=== PATIENT | female | born 1945 | race Caucasian/White ===

== ENCOUNTER 2019-03-31 09:32 | Outpatient (CLI) | payer MEDICARE, SELFPAY ==
[2019-03-31 12:27] LABS: HCT 37.8 % (36.0-46.0); HGB 12.3 g/dL (12.0-15.5); Mean Corp. HGB Concentration 32.5 g/dL (32.0-36.0); Mean Corpuscular Hemoglobin 27.4 pg (27.0-33.0); Mean Corpuscular Volume 84.2 fL (80-95); Mean Platelet Volume 10.1 fL (8.0-11.0); Platelet Count 295 x1000/uL (130-400); RBC 4.49 m/cumm (4.00-5.20); RBC Distribution Width 13.6 % (11.7-14.6); White Blood Cell Count 6.73 k/cumm (4.4-10.8)
[2019-03-31 12:47] LABS: ALT 21 U/L (12-78); AST 14 U/L (15-37); Albumin 3.4 g/dL (3.4-5.0); Alkaline Phosphatase 109 U/L (46-116); Anion Gap 8.7 mmol/L (3-11); BUN 23 mg/dL (7-18); Bilirubin, Total 0.3 mg/dL (0.2-1.0); CO2 29.3 mmol/L (21.0-32.0); CREATININE 0.85 mg/dL (0.55-1.02); Calcium 9.8 mg/dL (8.5-10.1); Calculated LDL 83 mg/dL; Chloride 105 mmol/L (98-107); Cholesterol 149 mg/dL (50-200); Glucose 96 mg/dL (70-100); HDL Cholesterol 51 mg/dL (40-60); Potassium 4.1 mmol/L (3.5-5.1); Sodium 143 mmol/L (136-145); Total Protein 6.9 g/dL (6.4-8.2); Triglyceride 77 mg/dL (30-150)
[2019-03-31 13:41] LABS: ESR 46 MM/HR (0-30)
[2019-03-31 14:18] LABS: COMMENT (LAB VIEW ONLY) 6.99 mg/dL
[2019-03-31 17:31] LABS: Hemoglobin A1C 5.5 % (4.5-6.2)
== END 2019-03-31 09:52 ==
PROVIDERS: PCP Family Medicine; Visit Provider Family Medicine
DX: E11.9 Type 2 diabetes mellitus without complications (principal); J32.9 Chronic sinusitis, unspecified; I10 Essential (primary) hypertension; R51 Headache
CPT/HCPCS: 36415; 80053; 80061; 83721; 85027; 85652; 82043; 82570; 83036

== ENCOUNTER 2019-08-01 08:33 | Emergency (ER) | payer MEDICARE, SELFPAY ==
[2019-08-01 08:37] VITALS: BP 153/65; PULSE 68; RESP 18; TEMP 37; O2SAT 99
--- NOTE | 2019-08-01 08:57 | W.ED.GENAD ---
Discharge Plan Disposition Patient Disposition: HOME Condition: Improving Discharge Details Chief Complaint: EyeProblem Clinical Impression: Abrasion of cornea, left Primary Care Provider: Navi Gomez ED Provider: Alex Blancas Home Meds and New Rx's Prescriptions: Continued oxybutynin chloride 5 mg tablet 5 mg PO BID Qty: 60 RF: 11 famotidine 20 mg tablet 20 mg PO BID Qty: 60 RF: 11 fluticasone propionate 50 mcg/actuation spray,suspension 2 spray MAO DAILY Qty: 18.2 RF: 11 omega-3 fatty acids-fish oil 300-1,000 mg capsule 2 cap PO DAILY Qty: 180 RF: 3 lovastatin 40 mg tablet 40 mg PO DAILY Qty: 90 RF: 4 metformin 500 mg tablet 500 mg PO BID 90 Days Qty: 180 RF: 3 losartan-hydrochlorothiazide [Hyzaar] 50-12.5 mg tablet 1 tab PO DAILY Qty: 90 RF: 4 glucosam-chond ob-zidolt-bv ac 1 EACH capsule 2 cap PO DAILY RF: 0 (DME) Breeze 2 Control Solution, Low 1 EACH solution 1 ea Miscellaneous DAILY Qty: 100 RF: 4 (DME) blood-glucose meter [OneTouch Verio System] 1 EACH misc Miscellaneous PRN Qty: 1 RF: 0 (DME) OneTouch Verio 1 EACH strip 1 ea Miscellaneous BID 90 Days Qty: 180 RF: 3 paroxetine HCl [Paxil] 30 mg tablet 30 mg PO DAILY Qty: 90 RF: 1 multivitamin 1 EACH capsule 1 cap PO DAILY RF: 0 calcium carbonate-vitamin D3 [Caltrate with Vitamin D3] 600 mg(1,500mg) -800 unit tablet 1 tab PO DAILY RF: 0 Discharge Instructions Instructions: Corneal Abrasion (ED) Additional Instructions: Erythromycin ointment 3-4 times daily for 5 days time. You may benefit from wearing sunglasses and avoiding bright light. May apply warm compress or cool compress if needed for comfort. Return if develop worsening discomfort, change to vision, or any other acute concerns. Continue all other previously prescribed medications. Medical Decision Making 74-year-old female presents with left eye injection and irritation. On exam she is noted to have 3 discrete left anterior corneal abrasions. Will treat with erythromycin ointment. She is stable for outpatient management. She understands return precautions. HPI General Mode of arrival: ambulatory. Date/Time Provider Initiated Documentation: 08/01/19 08:45. Limitations to Documentation: no limitations. Information obtained by: patient and family. History of Present Illness 74 year old F presents to the emergency department with the chief complaint of Left eye irritation, scratched the day before, described as moderate, Quality is described as constant, and is localized to the eyes. Patient started experiencing this minute(s) and it has been other (Improving). No relieving factors improve symptom(s), No exacerbating factors reported . Patient notes no other symptoms.. Patient did receive the following treatments prior to arrival, none Related Data Home Medications Medication Instructions Recorded Confirmed multivitamin 1 cap PO DAILY 11/30/12 08/01/19 glucosam-chond ld-krnvmj-ti ac 2 cap PO DAILY 01/27/13 08/01/19 Breeze 2 Control Solution, Low #100 ea 06/28/17 08/01/19 OneTouch Verio #180 strip 05/27/18 08/01/19 blood-glucose meter [OneTouch #1 05/27/18 08/01/19 Verio System] calcium carbonate-vitamin D3 600 1 tab PO DAILY tab 03/31/19 08/01/19 mg (1,500 mg)-800 unit tablet fluticasone propionate 50 2 spray MAO DAILY #18.2 gm 03/31/19 08/01/19 mcg/actuation nasal spray,suspension losartan 50 mg-hydrochlorothiazide 1 tab PO DAILY #90 tab-cap 03/31/19 08/01/19 12.5 mg tablet lovastatin 40 mg tablet 40 mg PO DAILY #90 tab 03/31/19 08/01/19 metformin 500 mg tablet 500 mg PO BID 90 Days #180 tab-cap 03/31/19 08/01/19 omega-3 fatty acids-fish oil 300 2 cap PO DAILY #180 cap 03/31/19 08/01/19 mg-1,000 mg capsule paroxetine HCl 30 mg tablet 30 mg PO DAILY #90 tab 05/05/19 08/01/19 famotidine 20 mg tablet 20 mg PO BID #60 tab 07/27/19 08/01/19 oxybutynin chloride 5 mg tablet 5 mg PO BID #60 tab 07/27/19 08/01/19 Previous Rx's Medication Instructions Recorded Breeze 2 Control Solution, Low #100 ea 06/28/17 OneTouch Verio #180 strip 05/27/18 fluticasone propionate 50 2 spray MAO DAILY #18.2 gm 03/31/19 mcg/actuation nasal spray,suspension losartan 50 mg-hydrochlorothiazide 1 tab PO DAILY #90 tab-cap 03/31/19 12.5 mg tablet lovastatin 40 mg tablet 40 mg PO DAILY #90 tab 03/31/19 metformin 500 mg tablet 500 mg PO BID 90 Days #180 tab-cap 03/31/19 omega-3 fatty acids-fish oil 300 2 cap PO DAILY #180 cap 03/31/19 mg-1,000 mg capsule paroxetine HCl 30 mg tablet 30 mg PO DAILY #90 tab 05/05/19 famotidine 20 mg tablet 20 mg PO BID #60 tab 07/27/19 oxybutynin chloride 5 mg tablet 5 mg PO BID #60 tab 07/27/19 Allergies Allergy/AdvReac Type Severity Reaction Status Date / Time latex Allergy Intermediate burning Unverified 08/01/19 08:45 adhesive Allergy Mild RASH Unverified 08/01/19 08:45 mercury (elemental) Allergy Unknown Unverified 08/01/19 08:45 tolterodine tartrate Allergy Unknown Unverified 08/01/19 08:45 [From Detrol] lisinopril AdvReac Unknown Unverified 08/01/19 08:45 General Stated Complaint: EyeProblem ASA: 4 Review of Systems Narrative: No change to vision, she is otherwise been well. Takes oral antibiotic for chronic infection. 4 systems reviewed and otherwise negative [facility] Surgical History Abdominal hysterectomy 1980 ADHESIONS (~1969) Appendectomy (~1965) Bladder Surgery CANCER TUMOR 1998 Extraction of cataract 07/28/15; DR. 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/13) Family History Mother Heart disease ID Hyperlipidemia Father Heart disease ID Hyperlipidemia Grandmother Heart disease ID Social History Smoking/Tobacco Use Status: Former Tobacco Use Alcohol Intake: never Drug use: Never Do you feel safe at home: Yes Do you feel safe in your relationship?: Yes Exam Narrative Exam Narrative: GEN: awake, alert, oriented 3. Pleasant, well groomed, interactive. HEAD: Normocephalic, atraumatic ENT: Mucous membranes moist, oropharynx unremarkable, External ear exam unremarkable EYES: PERRL, EOMI. left conjunctival and scleral injection, discrete 3 anterior corneal abrasions with positive floor seen uptake, negative Annita sign NECK: Full ROM, no KATHY, no menigismus Neuro: Grossly normal neurologic exam, conversant, interactive. Psych: Speech fluent, thoughts congruent, affect normal Course Vital Signs Vital signs: Vital Signs Temperature 37 C 08/01/19 08:37 Pulse 68 08/01/19 08:37 Respiratory Rate 18 08/01/19 08:37 Blood Pressure 153/65 H 08/01/19 08:37 Pulse Oximetry 99 08/01/19 08:37 Temperature 37 C 08/01/19 08:37 Temperature Source Temporal Artery Scan 08/01/19 08:37 Pulse 68 08/01/19 08:37 Respiratory Rate 18 08/01/19 08:37 Respiratory Effort Non-Labored 08/01/19 08:44 Blood Pressure 153/65 H 08/01/19 08:37 Blood Pressure Position Sitting 08/01/19 08:37 Pulse Oximetry 99 08/01/19 08:37 Oxygen Delivery Method Room Air 08/01/19 08:37 Oxygen Flow Rate 0 08/01/19 08:37 Pain Level 5 08/01/19 08:37
[2019-08-01] MEDS: Balanced Salt Solution 15 ML BTL (09:04)
[2019-08-01] MEDS: Fluorescein STRIPS 100/BOX 1 MG (09:04)
[2019-08-01] MEDS: Erythromycin Ophth Oint 3.5 GM TUBE (09:05)
== END 2019-08-01 09:10 | disposition home or self-care (01) ==
PROVIDERS: Emergency Provider Emergency Medicine; PCP Family Medicine
DX: S05.02XA Injury of conjunctiva and corneal abrasion without foreign body, left eye, initial encounter (principal); X58.XXXA Exposure to other specified factors, initial encounter
CPT/HCPCS: 99283

== ENCOUNTER → 2019-10-23 09:39 | Outpatient (BNVA) | payer MEDICARE, SELFPAY | PROVIDERS: PCP Family Medicine; Referring Provider Family Medicine; Visit Provider Surgery | DX: R13.10 Dysphagia, unspecified (principal); I10 Essential (primary) hypertension; E11.9 Type 2 diabetes mellitus without complications; Z79.84 Long term (current) use of oral hypoglycemic drugs | CPT/HCPCS: 99202; 99213 ==

== ENCOUNTER 2019-11-10 11:05 | Outpatient (CLI) | payer MEDICARE, SELFPAY ==
--- NOTE | 2019-11-10 11:11 | DI.RAD_ITS ---
EXAM: XR WRIST LT COMPLETE INDICATION: left wrist pain, M25.532. COMPARISON: No exams were available for comparison TECHNIQUE: 2D digital imaging was performed. FINDINGS: No acute fracture is identified. There is slight deformity of the distal radius and ulna which may b e related to old fractures. Degenerative changes are noted greatest at the 1st carpal metacarpal dale nt. No bony erosions are seen. IMPRESSION: Old healed fracture deformities and mild degenerative changes.
== END 2019-11-10 11:25 ==
PROVIDERS: PCP Family Medicine; Visit Provider Family Medicine
DX: M25.532 Pain in left wrist (principal); M19.032 Primary osteoarthritis, left wrist; Z87.81 Personal history of (healed) traumatic fracture
CPT/HCPCS: 73110

== ENCOUNTER 2019-11-24 08:22 | Outpatient (CLI) | payer MEDICARE, SELFPAY ==
[2019-11-24 09:04] LABS: Hemoglobin A1C 5.7 % (3.8-5.6)
[2019-11-24 09:58] LABS: ALT 16 U/L (14-59); AST 15 U/L (15-37); Albumin 3.4 g/dL (3.4-5.0); Alkaline Phosphatase 94 U/L (46-116); BUN 19 mg/dL (7-18); Bilirubin, Total 0.3 mg/dL (0.2-1.0); CREATININE 0.87 mg/dL (0.55-1.02); Calcium 9.4 mg/dL (8.5-10.1); Chloride 104 mmol/L (98-107); Glucose 87 mg/dL (74-106); Potassium 4.6 mmol/L (3.5-5.1); Sodium 141 mmol/L (136-145); Total Protein 6.7 g/dL (6.4-8.2); Uric Acid 4.6 mg/dL (2.6-6.0)
== END 2019-11-24 08:42 ==
PROVIDERS: PCP Family Medicine; Visit Provider Family Medicine
DX: E11.9 Type 2 diabetes mellitus without complications (principal); M25.532 Pain in left wrist
CPT/HCPCS: 36415; 80053; 83036; 84550

== ENCOUNTER 2019-12-02 05:58 | Day surgery (SDC) | payer MEDICARE, SELFPAY ==
[2019-12-02 06:10] VITALS: BP 141/63; PULSE 66; RESP 18; TEMP 37; O2SAT 97
--- NOTE | 2019-12-02 06:41 | ENDO_ITS ---
Date of service: 12/02/19 Time of Service: 07:27 Endoscopy Report DATE OF PROCEDURE: 12/02/19 PRE-OP DIAGNOSIS: Trouble swallowing, bloating POST-OP DIAGNOSIS: other (Gastritis, esophagitis, hiatal hernia) PROCEDURE: EGD with biopsies SURGEON: Yana Ayers ANESTHESIA: other (General/ ASA 3/Odilon Licona CRNA) ESTIMATED BLOOD LOSS: 5 PATHOLOGY: other (Antrum bx, greater curvature bx, GE junction bx, distal esophagus bx) COMPLICATIONS: None DISPOSITION: same day INDICATIONS: 74-year-old female with multiple medical problems and a history of reflux and a hiatal hernia who comes in complaining of 2 to 3 months worth of increased gas pain/chest pain which is relieved with Gas-X and trouble swallowing as well as painful swallowing. Patient was on omeprazole and was then switched to Pepcid. She was unable to tolerate the Pepcid due to ulcers in her mouth. She is at this time not taking anything for reflux. Last EGD was about 4 to 5 years ago. PROCEDURE START TIME: FINDINGS: Moderate gastritis. No ulcers Small Hiatal hernia Esophagitis, consistent with reflux PROCEDURE DESCRIPTION: After informed consent was obtained the patient was take to the procedure room and placed in a supine position. Monitors were applied and a time out was done. The patients name, date of , procedure type, allergies to medications and metal in their body was reviewed. A bite block was placed and the patient was sedated. Once sedated and comfortable the gastroscope was advanced through the oropharynx which was grossly normal into the esophagus. The proximal and mid- esophagus were normal. In the distal esophagus there was inflammation noted. The scope was advanced into the stomach and through the pylorus into the 3rd portion of the duodenum. The duodenum was noted to be normal. The scope was retracted back into the stomach. Patchy inflammation was noted in the antrum and body of the stomach. There were no ulcers. Biopsies were done of the antrum and greater curvature of the stomach to rule out H. pylori. The scope was retro- flexed. The cardia and fundus were noted to be normal. There was a small hiatal hernia noted. The scope was retracted back into the esophagus and biopsies were done of the GE junction to rule out Hinkle's. The Z line was i rregular. Grossly no hinkle's. The GE junction was at 33 cm. Biopsies were done of the distal esophagus to rule out eosinophilic esophagitis. The scope was removed and the patient was woken up and taken back to [facility] in stable condition. Follow up: 2 weeks. I will start the patient back on Omeprazole 40 mg daily as well as Carafate.
--- NOTE | 2019-12-02 06:41 | HPE_ITS ---
Assessment and Plan Assessment and plan (1) Swallowing pain or burning: Status: Acute Assessment and plan: A\\74-year-old female with multiple medical problems and a history of reflux and a hiatal hernia who comes in complaining of 2 to 3 months worth of increased gas pain/chest pain which is relieved with Gas-X and trouble swallowing as well as painful swallowing. Patient was on omeprazole and was then switched to Pepcid. She was unable to tolerate the Pepcid due to ulcers in her mouth. She is at this time not taking anything for reflux. Last EGD was about 4 to 5 years ago. P\\ EGD under sedation Risks, benefits and complications have been reviewed. Complications include but are not limited to bleeding, pain, perforation, sore throat, aspiration, and adverse reaction to the medications. Questions were entertained and answered to their satisfaction and they wished to proceed. No guarantees were given or implied. History of Present Illness Narrative: Mrs. Barnhart is a 74-year-old female who is here in the office today to discuss an upper endoscopy. Patient states that she has been having 2 to 3 months of increased abdominal gas with increased burping. She has pressure/chest pain that is relieved with Gas-X. It comes and goes. She describes pain with swallowing more than anything else. She had been on omeprazole for 20+ years for gastroesophageal reflux disease and a hiatal hernia. She stopped taking the omeprazole and was switched over to famotidine which then caused her to have ulcers in her mouth. She states that she was d iagnosed with small bowel Crohn's but is not on any medication for it. She denies any diarrhea or hematochezia. Her last upper endoscopy was about 5 years ago at which point she was diagnosed with a hiatal hernia. She did have an EKG done at her primary care physician's office which was normal. She denies a history of cardiac disease or strokes. Her past medical history is quite extensive. Of note the patient does have obstructive sleep apnea. She is obese with a BMI of more than 43. NO changes in her health since she was seen on October 23. Review of Systems Constitutional Constitutional: Denies fever(s) Cardiovascular Cardiovascular: Denies chest pain, Denies chest pain at rest, Denies chest pain with activity, Denies irregular heart rhythm, Denies dyspnea and Denies dyspnea on exertion Respiratory Respiratory: Denies dyspnea and Denies dyspnea on exertion [facility] Medical History Allergic rhinitis (Inactive) Benign paroxysmal positional vertigo (Inactive 03/04/18) Crohn's disease of small intestine without complication (Inactive 06/15/16) Depressive disorder (Inactive) Diabetes mellitus (Inactive) Essential hypertension (Inactive) GERD (gastroesophageal reflux disease) (Inactive 12/05/15) Globus sensation (Inactive 12/05/15) Headache (Inactive) History of tobacco use (Inactive) HTN (hypertension) (Inactive) Hyperlipidemia (Inactive) Mantoux: positive (Inactive) pt. is not aware of this Obesity (Inactive) MONIQUE (obstructive sleep apnea) (Inactive 12/05/15) Overactive bladder (Inactive 01/12/15) Peripheral neuralgia (Inactive) Prediabetes (Inactive 06/24/17) Seasonal allergies (Inactive 01/12/15) Sensorineural hearing loss, bilateral (Inactive 12/05/15) TMJ (temporomandibular joint disorder) (Inactive 12/05/15) Type 2 diabetes mellitus without complication, without long-term current use of insulin (Acute 07/08/17) Urge incontinence (Inactive) Vitamin D deficiency (Inactive 07/08/17) Surgical History Abdominal hysterectomy 1980 ADHESIONS (~1970) Bladder Surgery CANCER TUMOR 1998 Extraction of cataract 07/28/15; DR. 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 Status post appendectomy (Inactive) 1965 Family History Mother Heart disease AR Hyperlipidemia Father Heart disease AR Hyperlipidemia Grandmother Heart disease AR Social History Smoking/Tobacco Use Status: Former Tobacco Use Quit Date: 06/30/81 Alcohol Intake: never Drug use: Never Substance use type: does not use Additional Social history: pt. declines to answer That's not your buisness Meds Home Medications and Allergies Home Medications Medication Instructions Recorded Confirmed Type multivitamin 1 cap PO DAILY 11/30/12 12/02/19 History glucosam-chond ux-iojisu-yb ac 2 cap PO DAILY 01/27/13 12/02/19 History Breeze 2 Control Solution, Low #100 ea 06/28/17 11/10/19 Rx blood-glucose meter [OneTouch #1 05/27/18 11/10/19 History Verio System] calcium carbonate-vitamin D3 600 1 tab PO DAILY tab 03/31/19 12/02/19 History mg (1,500 mg)-800 unit tablet fluticasone propionate 50 2 spray MAO DAILY #18.2 gm 03/31/19 12/02/19 Rx mcg/actuation nasal spray,suspension losartan 50 mg-hydrochlorothiazide 1 tab PO DAILY #90 tab-cap 03/31/19 12/02/19 Rx 12.5 mg tablet lovastatin 40 mg tablet 40 mg PO DAILY #90 tab 03/31/19 12/02/19 Rx metformin 500 mg tablet 500 mg PO BID 90 Days #180 tab-cap 03/31/19 12/02/19 Rx omega-3 fatty acids-fish oil 300 2 cap PO DAILY #180 cap 03/31/19 12/02/19 Rx mg-1,000 mg capsule paroxetine HCl 30 mg tablet 30 mg PO DAILY #90 tab 05/05/19 12/02/19 Rx oxybutynin chloride 5 mg tablet 5 mg PO BID #180 tab 08/18/19 12/02/19 Rx blood sugar diagnostic #180 strip 08/25/19 11/10/19 Rx amitriptyline 10 mg tablet 10 mg PO QHS #90 tab 11/10/19 12/02/19 Rx omeprazole 20 mg capsule,delayed 20 mg PO BID #180 cap 11/10/19 12/02/19 Rx release Allergies Allergy/AdvReac Type Severity Reaction Status Date / Time famotidine Allergy Severe mouth Unverified 12/02/19 06:26 blisters latex Allergy Intermediate burning Unverified 12/02/19 06:26 adhesive Allergy Mild RASH Unverified 12/02/19 06:26 mercury (elemental) Allergy Unknown Unverified 12/02/19 06:26 tolterodine tartrate Allergy Unknown Unverified 12/02/19 06:26 [From Detrol] lisinopril AdvReac Unknown Unverified 12/02/19 06:26 Exam Const General: cooperative, comfortable and no acute distress Orientation: alert and oriented x3 Resp Effort & Inspection: normal respiratory effort Auscultation: clear to auscultation bilaterally Cardio Rate: regular rate Rhythm: regular rhythm Heart Sounds: no gallops, no murmurs and no rubs GI Palpation: soft, no hepatosplenomegaly and nontender Results Last Vital Signs Temp 98.6 F 12/02/19 06:10 Pulse 66 12/02/19 06:10 Resp 18 12/02/19 06:10 BP 141/63 H 12/02/19 06:10 Pulse Ox 97 12/02/19 06:10
[2019-12-02] MEDS: Lactated Ringers 1,000 ML 80 ML IV (06:45)
--- NOTE | 2019-12-02 06:52 | PDOC.DSDIS_ITS ---
Discharge Plan Disposition Patient Disposition: HOME Condition: Good Discharge Details Reason For Visit: Trouble swallowing, bloating Attending Provider: Yana Ayers Primary Care Provider: Navi Gomez Home Meds and New Rx's Prescriptions: New sucralfate [Carafate] 1 gram tablet 1 gm PO QID Qty: 56 RF: 0 Continued amitriptyline 10 mg tablet 10 mg PO QHS Qty: 90 RF: 1 omeprazole 20 mg capsule,delayed release(DR/EC) 20 mg PO BID Qty: 180 RF: 3 fluticasone propionate 50 mcg/actuation spray,suspension 2 spray MAO DAILY Qty: 18.2 RF: 11 omega-3 fatty acids-fish oil 300-1,000 mg capsule 2 cap PO DAILY Qty: 180 RF: 3 lovastatin 40 mg tablet 40 mg PO DAILY Qty: 90 RF: 4 metformin 500 mg tablet 500 mg PO BID 90 Days Qty: 180 RF: 3 losartan-hydrochlorothiazide [Hyzaar] 50-12.5 mg tablet 1 tab PO DAILY Qty: 90 RF: 4 glucosam-chond we-lugqkz-vf ac 1 EACH capsule 2 cap PO DAILY RF: 0 (DME) Breeze 2 Control Solution, Low 1 EACH solution 1 ea Miscellaneous DAILY Qty: 100 RF: 4 (DME) blood-glucose meter [OneTouch Verio System] 1 EACH misc Miscellaneous PRN Qty: 1 RF: 0 paroxetine HCl [Paxil] 30 mg tablet 30 mg PO DAILY Qty: 90 RF: 1 oxybutynin chloride 5 mg tablet 5 mg PO BID Qty: 180 RF: 3 (DME) OneTouch Verio Strip 1 ea Miscellaneous BID 90 Days Qty: 180 RF: 3 multivitamin 1 EACH capsule 1 cap PO DAILY RF: 0 calcium carbonate-vitamin D3 [Caltrate with Vitamin D3] 600 mg(1,500mg) -800 unit tablet 1 tab PO DAILY RF: 0 Discharge Instructions Instructions: Diet for Stomach Ulcers and Gastritis (GEN), Gastritis (DC), Esophagitis (DC) Additional Instructions: Findings: inflammation of the stomach and esophagus Follow up: 2 weeks Medications: Continue Omeprazole 20 mg 2 x a day ADD Carafate 1 gm before meals and at bedtime Please call if you develop: fevers >101.5 Nausea or Vomiting Abdominal pain that is not transient DAY SURGERY UNIT POST ENDOSCOPY INSTRUCTIONS 1. Because there will be medication in your system for the next 24 hours, you may feel a little sleepy. Your coordination will be affected. Therefore: a. Do not drive or operate dangerous equipment for 24 hours. b. Do not drink alcohol beverages for 24 hours (not even beer). c. Plan to go home and rest for the day. 2. Generally there are no restrictions on your activity after a day or so has gone by, but you may feel a bit fatigued for a few days. 3 After you arrive home you may have a light meal and return to a normal diet as you can tolerate it without feeling sick to your stomach. 4. After surgery, you may feel pain or discomfort. This should be only transient, but if it persists please contact your doctor. 5. If there are any questions regarding the findings of your procedure, please feel free to contact your doctor. 6. If you are unable to contact your doctor with a problem, contact the hospital at [phone]. 7. Continue all your regular medications unless directed otherwise. I understand the above instructions and have no questions. Signature of Patient or Responsible Adult Escort Date/Time Name of Responsible Adult Escort Signature of Nurse Date/Time Referrals: Yana Ayers MD [ [facility] STAFF PHYSICIAN] - 12/18/19 9:00 am Activity:: Activity as Tolerated Diet:: low acid Discharge Orders Discharge Orders: Discharge Order (Routine); Ordered 12/02/19 Ordered By: Yana Ayers DS: Diagnosis Discharge Diagnosis (1) Swallowing pain or burning: Status: Acute
--- NOTE | 2019-12-02 07:28 | STOM_PTH ---
PATIENT: Lori Barnhart LOC: [facility] U#:[id number] AGE/SX: 74/F ROOM: RE12/02/[address]: Yana Ayers MD : [id number] BED: DIS: 12/02/2019 SPEC #: [id number] RECD: 12/02/19 12:30 STATUS: TERESA RE #: [id number] ROSHNI: 12/02/19 07:[address]: Yana Ayers DEPT: Surgical Specimen RECD BY: Jenna Carroll ENTERED: 12/02/19 12:33 SP TYPE: STOMACH OTHR DR: Navi Gomez MD Tissues: 1 - STOMACH BIOPSY 2 - STOMACH BIOPSY 3 - ESOPHAGUS BIOPSY 4 - ESOPHAGUS BIOPSY Procedures: GROSS AND MICRO LEVEL 4 Comments: [id number]
[2019-12-02 08:00] VITALS: BP 142/61; PULSE 68; RESP 18; TEMP 36.6; O2SAT 96
== END 2019-12-02 08:26 | disposition home or self-care (01) ==
PROVIDERS: PCP Family Medicine; Visit Provider Surgery
PROC: 0DJ68ZZ Inspection of Stomach, Via Natural or Artificial Opening Endoscopic (ICD-10-PCS; CPT 43235; principal; 2019-12-02 07:30)
DX: R13.10 Dysphagia, unspecified (principal); R14.0 Abdominal distension (gaseous); K31.89 Other diseases of stomach and duodenum; K21.0 Gastro-esophageal reflux disease with esophagitis; K44.9 Diaphragmatic hernia without obstruction or gangrene; I10 Essential (primary) hypertension; E11.9 Type 2 diabetes mellitus without complications; Z79.84 Long term (current) use of oral hypoglycemic drugs; G47.33 Obstructive sleep apnea (adult) (pediatric)
CPT/HCPCS: 43239; 88305; NC

== ENCOUNTER 2020-04-06 03:06 | Outpatient (CLI) | payer MEDICARE, SELFPAY ==
[2020-04-06 09:59] LABS: Anion Gap 7.1 mmol/L (3-11); BUN 20 mg/dL (7-18); CO2 30.9 mmol/L (21.0-32.0); CREATININE 0.94 mg/dL (0.55-1.02); Calcium 9.7 mg/dL (8.5-10.1); Chloride 103 mmol/L (98-107); Estimated GFR 58.37 (mL/min/1.73m2); Glucose 91 mg/dL (74-106); Potassium 4.2 mmol/L (3.5-5.1); Sodium 141 mmol/L (136-145)
== END 2020-04-06 03:26 ==
PROVIDERS: PCP Family Medicine; Visit Provider Family Medicine
DX: R60.0 Localized edema (principal)
CPT/HCPCS: 36415; 80048

== ENCOUNTER 2020-05-02 02:31 | Outpatient (CLI) | payer MEDICARE, SELFPAY ==
[2020-05-02 12:31] LABS: Anion Gap 7.7 mmol/L (3-11); BUN 19 mg/dL (7-18); CO2 28.3 mmol/L (21.0-32.0); CREATININE 0.97 mg/dL (0.55-1.02); Calcium 9.9 mg/dL (8.5-10.1); Chloride 104 mmol/L (98-107); Estimated GFR 56.14 (mL/min/1.73m2); Glucose 93 mg/dL (74-106); Potassium 4.1 mmol/L (3.5-5.1); Sodium 140 mmol/L (136-145)
[2020-05-03 14:13] LABS: SS-A Antibody 2.1 Units (<20.0)
== END 2020-05-02 02:51 ==
PROVIDERS: Otolaryngology Otolaryngology/Facial Plastic Surgery; PCP Family Medicine; Visit Provider Family Medicine
DX: R60.0 Localized edema (principal); K13.79 Other lesions of oral mucosa; K14.6 Glossodynia; K11.7 Disturbances of salivary secretion
CPT/HCPCS: 36415; 80048; 86235

== ENCOUNTER 2020-05-12 00:57 | Outpatient (CLI) | payer MEDICARE, SELFPAY ==
--- NOTE | 2020-05-12 06:15 | DI.US_ITS ---
APPROVED REPORT EXAM: Comprehensive 2D, Doppler, and color-flow Echocardiogram Patient Location: Out-Patient Music Publicist: Stephanie Obando RDCS (AE) Indications: Edema, HTN Other Information Study Quality: Adequate Conclusion Left Ventricle : The left ventricle is normal size. The left ventricular systolic function is normal. The left ventricular ejection fraction is within the normal range. There is normal left ventricular wall thickness. There is normal LV segmental wall motion. The left ventricular diastolic function is normal. LVEF is 58%. Right Ventricle : The right ventricle is normal size. The right ventricular systolic function is norm al. The RVSP is 28.1 mmHg. Atria : The left atrium size is normal. The right atrium size is normal. Valves: There are no hemodynamically significant valvular lesions. Great Vessels : The aortic root is normal in size. The ascending aorta is normal in size. Aortic arch is normal in caliber. IVC is normal in size and collapses >50% with inspiration. Pericardium: Prominent anterior epicardial fat pad is present. Wall motion Left Ventricle The left ventricle is normal size. The left ventricular systolic function is normal. The left ventric ular ejection fraction is within the normal range. There is normal left ventricular wall thickness. T here is normal LV segmental wall motion. The left ventricular diastolic function is normal. There is no ventricular septal defect visualized. LVEF is 58%. Right Ventricle The right ventricle is normal size. The right ventricular systolic function is normal. The RVSP is 28 .1 mmHg. Atria The left atrium size is normal. The right atrium size is normal. The interatrial septum is intact wit h no evidence for an atrial septal defect. Aortic Valve The aortic valve is normal in structure. The Aortic valve is sclerotic. Aortic valve is trileaflet. T here is no aortic valvular stenosis. No aortic regurgitation is present. Mitral Valve There is mitral annular calcification. No evidence of mitral valve stenosis. Trace to mild mitral reg urgitation. Tricuspid Valve The tricuspid valve is normal in structure. There is no tricuspid valve stenosis. Mild tricuspid regu rgitation. Pulmonic Valve The pulmonary valve is normal in structure. There is no pulmonic valvular stenosis. There is no pulmo halie valvular regurgitation. Great Vessels The aortic root is normal in size. The ascending aorta is normal in size. Aortic arch is normal in ca liber. IVC is normal in size and collapses >50% with inspiration. Pericardium Prominent anterior epicardial fat pad is present. 2D Dimensions IVSD d PLAX 0.97 cm F: 0.6-1.0 LV Vol A2C d MOD 64.6 mL LVPW d PLAX 0.96 cm F: 0.6 - 1.0 LV Vol A4C d MOD 78.9 mL LVID d PLAX 4.72 cm F: 3.8 - 5.2 LA vol/ BSA A2C s A-L 25.0 mL/m2 LVDs 3.30 cm F: 2.2 - 3.5 LA vol/ BSA A4C s A-L 23.9 mL/m2 Ao Root d 2.38 cm F: 2.7 - 3.3 LA Vol/ BSA Biplane s A-L 25.1 mL/m2 RA Area A4C 14.44 cm2 LA Area A4C s MOD 18.15 cm2 RA Vol/ BSA A4C s A-L 18.6 mL/m2 LA Area A2C s MOD 18.09 cm2 Ao Asc Diam d 3.18 cm F: 2.3 - 3.1 LV EF A4C MOD 56.0 % LV EF Teichholz 57.0 % LV EF A2C MOD 58.9 % LVEF (Haney's) 58.57 % F: 54 - 74 LV EF Biplane MOD 58.6 % LV Volume 55.73 mL F: 46 - 106 SV 43.44 mL LV Volume Index 28.14 mL/m2 F: 29 - 61 SV Index 21.85 mL/m2 LV Vol Biplane MOD 74.2 mL FS 29.85 % M-Mode TAPSE 2.38 cm (M/F) >1.7 LV Diastology MV E' medial 0.077 (>0.07 m/s) E/A Ratio 0.9 LV E/e MED 9.50 (<14) MV E Vmax 0.73 (0.4-1.3 m/s) MV E' lateral 0.120 (>0.1 m/s) MV A Vmax 0.80 (0.4-1.3 m/s) LV E/e LAT 6.10 (<14) MV E/A Ratio 0.87 MV E/E' medial 9.54 MV E/E' lateral 6.13 Aortic Valve LVOT Area 2.35 cm2 AoV Area Vmax 1.77 cm2 LVOT Vmax 1.11 m/s AoV Area/ BSA (Vmax) 0.89 cm2/m2 LVOT Mean Zion. 0.72 m/s PRECIOUS Mean Zion. 1.63 cm2 LVOT Peak Grad 4.9 mmHg PRECIOUS Mean Zion. Index 0.82 cm2/m2 LVOT Mean Grad 2.4 mmHg LVOT VTI 0.282 m LVOT Diam s 1.70 cm AoV Vmax 1.47 m/s Velocity Ratio 0.75 AoV Mean Zion. 1.03 m/s AoV Peak Grad 8.6 mmHg LVOT SV 66.29 mL AoV Mean Grad 4.8 mmHg AoV VTI 0.355 m AoV Area VTI 1.87 cm2 AoV Area/ BSA (VTI) 0.94 cm/m2 Mitral Valve MV DT 186 (160-240 msec) MV PHT 54 msec MV Area PHT 4.07 cm2 Pulmonary Valve PV Vmax 1.58 (0.5-1.5 m/s) RVOT Peak Gr. 3.33 mmHg PV Peak Grad 10.0 mmHg RVOT Mean Gr. 1.95 mmHg PV Mean Grad 5.4 mmHg RVOT VTI 0.218 m PV VTI 0.339 m RVOT Vmax 0.91 m/s Tricuspid Valve TR Peak Grad 25.0 mmHg TR Vmax 2.50 m/s RA Pressure 3.00 mmHg RVSP (TR) 28.1 mmHg
== END 2020-05-12 01:17 ==
PROVIDERS: PCP Family Medicine; Visit Provider Family Medicine
DX: R60.0 Localized edema (principal); E11.9 Type 2 diabetes mellitus without complications; I10 Essential (primary) hypertension; Z79.4 Long term (current) use of insulin
CPT/HCPCS: 93306

== ENCOUNTER 2020-06-13 21:44 | Outpatient (REF) | payer MEDICARE, SELFPAY | END 2020-06-13 22:04 | LOC: LBN 21:44 | PROVIDERS: PCP Family Medicine; Visit Provider Otolaryngology Otolaryngology/Facial Plastic Surgery | DX: J02.9 Acute pharyngitis, unspecified (principal) | CPT/HCPCS: 87070 ==

== ENCOUNTER 2020-09-29 03:38 | Outpatient (CLI) | payer MEDICARE, SELFPAY ==
[2020-09-29 09:14] LABS: Hemoglobin A1C 5.4 % (<5.7)
[2020-09-29 09:34] LABS: ALT 19 U/L (14-59); Calculated LDL 73 mg/dL (<100); Cholesterol 153 mg/dL (<200); HDL Cholesterol 56 mg/dL (40-60); Triglyceride 123 mg/dL (<150)
[2020-09-29 09:43] LABS: COMMENT (LAB VIEW ONLY) < 13.00 mg/dL
== END 2020-09-29 03:58 ==
PROVIDERS: PCP Family Medicine; Visit Provider Family Medicine
DX: E11.9 Type 2 diabetes mellitus without complications (principal)
CPT/HCPCS: 36415; 80061; 82043; 82570; 83036; 84460

== ENCOUNTER 2021-09-14 15:54 | Outpatient (CLI) | payer MEDICARE, SELFPAY ==
--- NOTE | 2021-09-14 15:22 | DI.RAD_ITS ---
Exam(s) XR WRIST RT COMPL NAVICULAR EXAM: XR WRIST RT COMPL NAVICULAR CLINICAL HISTORY: RT WRIST PAIN M25.531. TECHNIQUE: 2D digital imaging was performed. COMPARISON: CR XR WRIST LT COMPLETE from 11/10/2019 FINDINGS: Four views the right wrist including a in the thickened ower view reveal no evidence of acute fractur e or carpal dislocation. No significant ulnar variance. No scaphoid fracture. Bone density is oste openic. IMPRESSION: No acute fracture evident. DATA REPOSITORY: RADIATION DOSE DELIVERED:
--- NOTE | 2021-09-14 15:23 | DI.RAD_ITS ---
Exam(s) XR THUMB RT EXAM: XR THUMB RT CLINICAL HISTORY: RT THUMB PAIN M79.644, PAIN BASE OF THUMB AND/OR WRIST. TECHNIQUE: 2D digital imaging was performed. COMPARISON: CR LEFT HAND COMPLETE from 01/08/2010 FINDINGS: No evidence of acute fracture or dislocation. On the lateral view there is a triangular ossified den sity off the dorsal aspect of the metacarpophalangeal joint of the thumb which is probably not an acu te fragment given that it appears corticated on all sides. There are mild degenerative changes at th e 1st carpometacarpal joint. There is no radiopaque foreign body. No osseous lesions. IMPRESSION: DATA REPOSITORY: RADIATION DOSE DELIVERED:
== END 2021-09-14 16:14 ==
PROVIDERS: PCP Nurse Practitioner Family; Visit Provider Physician Assistant Medical
DX: M79.644 Pain in right finger(s) (principal); M25.531 Pain in right wrist; M18.9 Osteoarthritis of first carpometacarpal joint, unspecified
CPT/HCPCS: 73110; 73140

== ENCOUNTER 2022-04-19 01:33 | Outpatient (CLI) | payer MEDICARE, SELFPAY ==
--- OUTSIDE RECORDS SUMMARY | 2022-04-19 01:36 | XMS_ITS | Encounter Summary ---
:1945 Author Organization [facility] Address [facility] [place] [address] Care Team Providers Name Role Phone Kerwin Sharma MD Primary Care Provider Reason for Visit Reason Onset Date Comments Bumped Appointment 10/11/2020 Encounter Details Date Type Department Care Team Description 10/11/2020 Telephone Ophthalmology at [facility] C Conchis, Bumped Appointment [facility] [place] [address] [facility] [phone] [place], [place] [address] (Wo rk) Social History Tobacco Use Types Packs/Day Years Used Date Former Smoker Quit: 1980 Smokeless Tobacco: Never Used Alcohol Use Standard Drinks/Week Comments Not Currently 0 (1 standard drink = 0.6 oz pure alcoho l) Sex Assigned at Date Recorded Not on file documented as of this encounter Miscellaneous Notes Telephone Encounter - Mely Calles - 10/13/2020 8:27 AM EST LMOAM x 2 to reschedule 2/5 appt with DM due to COVID restrictions. If patient is not having any issues please offer next available. If patient is having issues please offer tech visit on a day that DMis not there. Letter Sent Telephone Encounter - Mely Calles - 10/11/2020 8:49 AM EST LMOAM x 1 to reschedule 2/5 appt with DM due to COVID restrictions. If patient is not having any issues please offer next available. If patient is having issues please offer tech visit on a day that DMis not there. documented in this encounter Plan of Treatment Not on filedocumented as of this encounter Visit Diagnoses Not on filedocumented in this encounter Care Teams Special Order Jeweler Relationship Specialty Start Date End Date Kerwin Sharma MD PCP - General 06/25/[address] [place] [address] documented as of this encounter
--- OUTSIDE RECORDS SUMMARY | 2022-04-19 01:36 | XMS_ITS | Encounter Summary ---
:1945 Author Organization [place] [address] Care Team Providers Name Role Phone Jay BARRY MD, Lloyd L Primary Care Provider [phone] Encounter Details Date Type Department Care Team Description 01/26/2011 Orders [place] [facility] [place] Emerson MD [facility] [place] [address] ORTHOPAEDIC SURGERY [phone] [place] [address] (Wo rk) Social History Tobacco Use Types Packs/Day Years Used Date Never Assessed Sex Assigned at Date Recorded Not on file documented as of this encounter Plan of Treatment Not on filedocumented as of this encounter Procedures Procedure Name Priority Date/Time Associated Diagnosis Comme nts FILM LIBRARY Routine 01/26/2011 12:10 PM Results for this STORAGE ONLY MR EDT procedure ar e in WRIST the results section. documented in this encounter Results FILM LIBRARY- STORAGE ONLY MR WRIST (01/26/2011 12:10 PM EDT) Anatomical Region Laterality Modality Other Specimen (Source) Anatomical Collection Method Collection Time Re ceived Time Location / / Volume Laterality 01/26/2011 12:10 PM EDT Narrative 11/17/2013 6:33 PM EST This is a non-reportable exam. Procedure Note Wong Mariee - 11/17/2013Formatting of t his note might be different from the original. This is a non-reportable exam. Armen Emerson MD IMG FILM LIBRARY ORDERABLES documented in this encounter Visit Diagnoses Not on filedocumented in this encounter Care Teams Machine Assembler Relationship Specialty Start Date End Date Daniel Thompson III, MD PCP - General 08/22/10 06/24/11 [address] [place] [address] documented as of this encounter
--- OUTSIDE RECORDS SUMMARY | 2022-04-19 01:36 | XMS_ITS | Encounter Summary ---
:[address] [facility] Address [address] [place] [address] Care Team Providers Name Role Phone Kerwin Sharma MD Primary Care Provider Unavailable Encounter Details Date Type Department Care Team Description 05/02/2020 Lab Requisition [facility] Outr Resulting Lab, Pathology & Laboratory Provider [facility] [address] [place] [address] Social History Tobacco Use Types Packs/Day Years Used Date Never Assessed Sex Assigned at Date Recorded Not on file documented as of this encounter Plan of Treatment Not on filedocumented as of this encounter Procedures Procedure Name Priority Date/Time Associated Comments Diagnosis SSB ANTIBODIES BY Routine 05/02/2020 8:18 EDT Res ults for this YAKELIN procedure are i n the results section. SSA ANTIBODIES BY Routine 05/02/2020 8:18 EDT Res ults for this YAKELIN procedure are i n the results section. documented in this encounter Results SSB ANTIBODIES BY YAKELIN (05/02/2020 8:18 EDT) SSB Antibody 4.0 <20.0 Units [facility] Comment: LABORATORY SERVICES ? Negative: <20.0 Units ? Weak Positive: 20.0 - 39.9 Units ? Moderate Positive: 40.0 - 80.0 Unit s ? Strong Positive: >80.0 Units Results were obtained with MedikidzA Lite SS-B YAKELIN. ??SS-B values obtained with different manufacturers' assay methods may not be used interchangeably. ??The magnitude of the reported IgG levels cannot be correlated to an endpoint titer. Specimen Blood - Venous blood (substance) Performing Organization Address City/[facility]/ZIP Code Phon e Number [facility] [address] [place] [address] SERVICES SSA ANTIBODIES BY YAKELIN (05/02/2020 8:18 EDT) SSA Antibody 2.1 <20.0 Units [facility] Comment: LABORATORY SERVICES ? Negative: <20.0 Units ? Weak Positive: 20.0 - 39.9 Units ? Moderate Positive: 40.0 - 80.0 Unit s ? Strong Positive: >80.0 Units Results were obtained with MedikidzA Lite SS-A YAKELIN. ??SS-A values obtained with different manufacturers' assay methods may not be used interchangeably. ??The magnitude of the reported IgG levels cannot be correlated to an endpoint titer. Specimen Blood - Venous blood (substance) Performing Organization Address City/State/ZIP Code Phon e Number [facility] [address] [place] [address] SERVICES documented in this encounter Visit Diagnoses Not on filedocumented in this encounter Care Teams Colon Therapist Relationship Specialty Start Date End Date Kerwin Sharma MD PCP - General 03/08/16 documented as of this encounter
--- OUTSIDE RECORDS SUMMARY | 2022-04-19 01:36 | XMS_ITS | Clinical Summary ---
:1945 Author Organization [facility] [place] [address] Care Team Providers Name Role Phone Kerwin Sharma MD Primary Care Provider Allergies Active Allergy Reactions Severity Noted Date Comments Mercury Salts CIS - Rash Medications Medication Sig Dispensed Refills Start Date End Date Status DILTiazem (CARDIZEM CD) 240 240MG = 1 0 11/14/2006 Active mg 24 hr capsule Capsule(s), PO, Once daily lovastatin (MEVACOR) 40 mg 40MG = 1 0 11/14/2006 Active tablet Tablet(s), PO, Once daily PARoxetine (PAXIL) 30 mg 30M.5-1 0 11/14/2006 Active tablet tab, PO, Once daily carbidopa-levodopa 2 Tablet(s), 0 11/14/2006 Active (SINEMET) 25-100 mg per PO, QHS tablet multivitamin with minerals 0 11/14/2006 Active tablet lisinopril 40MG = 1 0 11/14/2006 Active (PRINIVIL;ZESTRIL) 40 mg Tablet(s), tablet PO, Once daily hydrochlorothiazide 12.5MG = 1 0 11/14/2006 Active (MICROZIDE) 12.5 mg capsule Capsule(s), PO, Once daily oxybutynin (DITROPAN) 5 mg 5MG = 1 0 11/14/2006 Active tablet Tablet(s), PO, Three times daily naproxen sodium (ALEVE) 220 Take 220 mg 0 Active mg tabletIndications: pain by mouth 2 times daily (with meals). Indications: Pain GLUC HCL/GLUC Take by 0 Active FLORIAN/AC-D-GLUCOS (GLUCOSAMINE mouth. COMPLEX ORAL) VITAMIN E/FLAXSEED OIL Take by 0 Active (OMEGA-3 FLAXSEED OIL ORAL) mouth. metFORMIN (Glucophage) 500 0 09/26/2019 Active mg Tablet OneTouch Verio Strip USE TO TEST 0 08/25/2019 Active THREE TIMES A DAY losartan-hydrochlorothiazid 0 09/26/2019 Active e (HYZAAR) 50-12.5 mg Tablet omeprazole (PriLOSEC) 20 mg 0 10/04/2019 Active Capsule, Delayed Release(E.C.) Active Problems Problem Noted Date Pillar pain, post-operative, right hand 06/25/2011 Immunizations Name Administration Dates Next Due Influenza Vaccine, Whole 07/31/2006 Pneumococcal Polyvalent 23 07/31/2006 Family History Medical History Relation Comments Heart Disease Father Heart Disease Maternal Grandfather Cancer Maternal Grandmother Heart Disease Maternal Grandmother Diabetes Maternal Uncle Cancer Mother Heart Disease Mother Diabetes Paternal Aunt Heart Disease Paternal Grandfather Heart Disease Paternal Grandmother Relation Status Comments Father Maternal Grandfather Maternal Grandmother Maternal Uncle Mother Paternal Aunt Paternal Grandfather Paternal Grandmother Social History Tobacco Use Types Packs/Day Years Used Date Former Smoker Quit: 1980 Smokeless Tobacco: Never Used Alcohol Use Standard Drinks/Week Comments Not Currently 0 (1 standard drink = 0.6 oz pure alcoho l) Sex Assigned at Date Recorded Not on file Plan of Treatment Health Maintenance Due Date Last Done Comments Covid-19 Vaccine (#1) 1950 Hepatitis C Screening 1964 Tdap adult 1965 Tetanus vaccine 1965 Colonoscopy 1991 Zoster vaccine (1 of 2) 1996 Advance Directive 2001 Bone Density Scan 2011 Pneumoccocal Vaccine: 65+ (1 - PCV) 2011 07/31/2006 Influenza (Flu) vaccine (1 of 1 - Influenza standard 05/31/2022 07/31/2006 series) Insurance Payer Benefit Plan / Subscriber ID Effective Phone Address T ype Group Dates MEDICARE MEDICARE PART A [id number] 2019-Pres [phone] [place] [address] AARP SUPPLEMENT AARP SUPPLEMENT [id number] 2019[place] [id number] [place] [address] Care Teams Data Processing Auditor Relationship Specialty Start Date End Date Kerwin Sharma MD PCP - General 06/25/[address] [place] [address]
--- OUTSIDE RECORDS SUMMARY | 2022-04-19 01:36 | XMS_ITS | Clinical Summary ---
:1945 Author Organization [facility] Address [address] [place] [address] Care Team Providers Name Role Phone Kerwin Sharma MD Primary Care Provider Unavailable Social History Tobacco Use Types Packs/Day Years Used Date Never Assessed Sex Assigned at Date Recorded Not on file Plan of Treatment Health Maintenance Due Date Last Done Comments Fall Risk Screening 2011 Insurance Payer Benefit Plan Subscriber ID Effective Phone Address Typ e / Group Dates MEDICARE MEDICARE A/B [id number] 2001-Pre [address] edicare GL sent [id number] [place] [address] [facility] [id number] 2019-Pres [phone] [address] [facility] [phone] [place] [address] Care Teams Publicity Expert Relationship Specialty Start Date End Date Kerwin Sharma MD PCP - General 03/08/16
--- OUTSIDE RECORDS SUMMARY | 2022-04-19 01:36 | XMS_ITS | Encounter Summary ---
:1945 Author Organization [facility] [place] [address] Care Team Providers Name Role Phone Kerwin Sharma MD Primary Care Provider Reason for Visit Reason Comments Pain Consultation (Routine) - Specialty Diagnoses / Procedures Referred By Contact Refer red To Contact Ophthalmology Diagnoses acquired melanocytic nevus Megan Jimenez, OD Conchis, [facility] [address] MD Desire [facility] [address] [place] [address] Fax: Referral ID Status Reason Start Date Expiration Date Visits V isits Requested Authorized [id number] Consult, Test 06/29/2019 06/28/2020 6 6 & Treat PCP Updated and/or Approved Encounter Details Date Type Department Care Team Description 11/03/2019 Office Visit Ophthalmology at [facility] C Conchis, Choroidal nevus of [facility] [place] [address] [place] [address] [place], [place] [address] Social History Tobacco Use Types Packs/Day Years Used Date Former Smoker Quit: 1980 Smokeless Tobacco: Never Used Alcohol Use Standard Drinks/Week Comments Not Currently 0 (1 standard drink = 0.6 oz pure alcoho l) Sex Assigned at Date Recorded Not on file documented as of this encounter Progress Notes Desire Balderrama MD - 11/03/2019 12:00 PM EST ASSESSMENT/PLAN: 1. Choroidal nevus of left eye Visual Acuity Visual Acuity (Snellen - Linear) Right Left Dist cc 20/30 -1 20/25 -2 Dist ph cc 20/30 20/25 Near cc 20/30 20/25 Correction: Glasses Tonometry Tonometry (Applanation, 12:54 PM) Right Left Pressure 20 19 B-scan OS (11/03/19): 1.24 mm x 1.67 mm (L2:30 x T2:30) lesion with high internal reflectivity 1. Amelanotic nevus OS Dr. Jimenez, thank you for the kind referral. 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 Based on today's fundoscopic exam and multimodal imaging there are no high risk characteristics indicative of malignant process. Discussed with the patient the low risk of malignant transformation. Education provided regarding the warning symptoms and we will monitor conservatively with series of eye exams. 2. Ocular Migraine Recommend follow up and treatment with Dr. Sharma, the patient's PCP Follow up 1 year for DFE OU and B-scan Sup-temp OS Sooner PRN with new symptoms (flashes, floaters, curtain over vision) I, Matias Turner, have performed the documentation for this encounter in the presence of, and acting as a scribe for Desire Balderrama MD. I performed the services which were documented by the scribe, and I agree with the accuracy of the documentation in this encounter. Desire Balderrama MD, PhD documented in this encounter Plan of Treatment Not on filedocumented as of this encounter Procedures Procedure Name Priority Date/Time Associated Diagnosis Comme nts FUNDUS PHOTOS - OU- Routine 11/03/2019 1:43 PM Choroidal nevus of Results for this BOTH EYES EST left eye procedure are i n the results section. OCT RETINA - OU - Routine 11/03/2019 1:42 PM Choroidal nevus o f Results for this BOTH EYES EST left eye procedure are i n the results section. US B-SCAN - OS - Routine 11/03/2019 1:42 PM Choroidal nevus of Results for this LEFT EYE EST left eye procedure are i n the results section. documented in this encounter Results Fundus Photos - OU - Both Eyes (11/03/2019 1:43 PM EST) Anatomical Region Laterality Modality Other Specimen (Source) Anatomical Location Collection Method / Collectio n Time Received Time / Laterality Volume Narrative 11/03/2019 1:43 PM EST Right Eye Disc findings include normal observation s. Macula findings include normal observations. Vessel findings include no rmal observations. Periphery findings include normal observations. Left Eye Disc findings include normal observation s. Macula findings include normal observations. Vessel findings include no rmal observations. Notes Amelanotic nevus at 2:30 OS Desire Balderrama MD OPHTHALMOLOGY SERVICES [employer] OCT Retina - OU - Both Eyes (11/03/2019 1:42 PM EST) Anatomical Region Laterality Modality Other Specimen (Source) Anatomical Location Collection Method / Collectio n Time Received Time / Laterality Volume Narrative 11/03/2019 1:42 PM EST Right Eye Quality was good. Scan locations include d subfoveal. Findings include normal observations, normal foveal conto ur. Left Eye Quality was good. Scan locations include d subfoveal. Findings include normal foveal contour, normal observatio ns. Desire Balderrama MD OPHTHALMOLOGY SERVICES [employer] [employer] US B-Scan - OS - Left Eye (11/03/2019 1:42 PM EST) Anatomical Region Laterality Modality Other Specimen (Source) Anatomical Location Collection Method / Collectio n Time Received Time / Laterality Volume Narrative 11/03/2019 1:42 PM EST Reliability was good. Progression has been stable. Quality was good. Findings included normal observations. Notes Choroidal nevus. 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
--- OUTSIDE RECORDS SUMMARY | 2022-04-19 01:36 | XMS_ITS | Encounter Summary ---
:1945 Author Organization [facility] Address [facility] [place] [address] Care Team Providers Name Role Phone Kerwin Sharma MD Primary Care Provider Reason for Visit Reason Comments Right Wrist Pain Encounter Details Date Type Department Care Team Description 06/25/2011 Office Visit [place] [facility] Armen Emerson Pillar pain, [facility] post-operative, right Drive [facility] (Primary Dx) [place] [address] [place] [address] ORTHOPAEDIC SURGERY [place], [place] [address] Social History Tobacco Use Types Packs/Day Years Used Date Former Smoker Sex Assigned at Date Recorded Not on file documented as of this encounter Progress Notes Andrea Jessica PA - 06/25/2011 2:35 PM EDT DATE OF SERVICE: 06/25/2011. ATTENDING: Ki Byrd M.D. Lori is sent to us by Dr. Chris for a second opinion of right hand and wrist pain, at the base of the palm. She tells me that altogether she has had pain in her hand for approximately one year. She is evaluated by Dr. Chris and Dr. Wu of [facility]. 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 She went to the operating room on 04/25/2011, for an endoscopic carpal tunnel decompression and tendon sheath incision of the FCR tendon. She has had improvement in her carpal tunnel symptoms but she continues to have postoperative pain in the base of the palm and some numbness in the central palm just distal to her incision. She describes the discomfort is bee stings that is essentially constant in nature. She does go on to tell me that her carpal tunnel syndrome symptoms have improved since her surgery, but she is concerned about this pain in the base of the palm. Her past medical history is positive for diet-controlled diabetes (type II), negative for thyroid, negative for reflux, negative for epilepsy, Dilantin, trauma, or excessive alcohol use. She is otherwise fairly active. Her current medications are up-to-date in the [facility] and include lovastatin, paroxetine, amitriptyline, hydrochlorothiazide, carbidopa, levodopa, multivitamins, flax, Aleve, glucosamine and chondroitin. ALLERGIES ARE NEGATIVE. Medical conditions include high cholesterol, panic anxiety, hypertension, and bladder tumor. Surgical history is positive for tonsillectomy, appendectomy, various ruptures and adhesions in 1967, hysterectomy in 1980, and her wrist surgery in 2010. She is a nonsmoker. She stopped in 1980. She does not drink nor does exercise. She takes care of her animals, plays cards, and does some occasional volunteer work. She uses cane as needed for ambulation and occasionally wheelchair. She is not using either of today. She is a high-school graduate. Family history is positive for diabetes, cancer, heart disease, arthritis, hypertension, and stroke. PHYSICAL EXAMINATION: She is awake, alert, and oriented, in no acute distress resting comfortably in the exam room. A pleasant woman who does require some refocusing during our interview and during our examination. Her right hand is warm and dry, sensate throughout, well perfused, FDS, FDP, EPL, FPL are intact. There is a healed surgical incision within the volar aspect of the wrist that is discretely tender. She does experience some diminishment sensation of the distal aspect of the incision in the center of the palm. She also has significant tenderness in both the ulnar and radial base of the palm consistent with pillar pain. 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 she is nontender to palpation over the basal joint itself. She has negative circumduction and grind. ASSESSMENT: 1. Hand pain. 2. Central palm dysesthesia consistent with possible palmar cutaneous branch of the median nerve injury and pillar pain consistent with pillar pain changes, status post tunnel release. Dr. Emerson looked on the patient, performed an examination and agrees with the above. Please also see his note dated 06/25/2011. He explained the syndrome to her. She does understand that the pain in the palm status post carpal tunnel release, could last for some significant period of time. It was recommended that she consider hand therapy with TENS Unit and I have given her a prescription for this. She will follow up with Dr. Chris for the prescription for the TENS Unit and she will begin therapy with therapist of her choice. My plan is to have her follow up with her surgeon and she understands and agrees with that plan. INOT Aremn Emerson MD - 06/25/2011 2:03 PM EDT Ms. Barnhart was sent to me for consultation by Dr. Chris of [place], [place] for consultation for right hand and wrist pain following carpal tunnel release. She underwent an endoscopic right carpal tunnel decompression as well as release of her right flexor carpi radialis tendon sheath on 04/25/2011. Since her surgery, she has had fairly profound pain on both the radial and palmar ulnar aspects of her right hand. She also has noted some numbness on the palmar radial aspect of her hand. She notes that her finger numbness and nocturnal dysesthesias have resolved. She was sent to me for my consultation. She has not been on any formal hand therapy. She describes her discouragement with the fact that she has ongoing pain. I saw her in conjunction today with SHELBI Johnson and SHELBI Jessica has dictated a note which reflects her past medical history. Examination reveals a pleasant alert female in no apparent distress. She has tenderness to palpationover both the radial and ulnar pillars. There is numbness over the palmar radial aspect of her righthand in the palmar cutaneous distribution of the median nerve. Her digital sensation is grossly intact. She has a healing transverse scar present over the palmar wrist crease region. Her hand is well perfused. She has intact palmar abduction of her thumb. She has intact intrinsic function. She has no dermatologic lesions in her hand. DIAGNOSIS: Diagnosis is pillar pain, right hand, with irritation of the palmar cutaneous branch of the median nerve. I do believe she would benefit from hand therapy for desensitization as well as perhaps a TENS unit to help with may be some neuritic discomfort that may be related to irritation of the palmar cutaneous branch of her median nerve. I do not see any obvious surgical indications for this. We have given her referral for hand therapy done closer to her home but suggest that she continue followup with Dr. Chris so he can monitor her progress. I believe that with time her symptoms will improve and she will do well. She will see me in the future for this on a p.r.n. basis. Cc. Dr Chris documented in this encounter Miscellaneous Notes Miscellaneous - Herb, Sole Sewer Hand - 07/04/2011 10:51 AM EDT documented in this encounter Plan of Treatment Not on filedocumented as of this encounter Visit Diagnoses Diagnosis Pillar pain, post-operative, right hand - Primary Other acute postoperative pain documented in this encounter Care Teams Coffee Machine Technician Relationship Specialty Start Date End Date Kerwin Sharma MD PCP - General 06/25/[address] [place] [address] [address] [place] [address] documented as of this encounter
--- OUTSIDE RECORDS SUMMARY | 2022-04-19 01:36 | XMS_ITS | Encounter Summary ---
:1945 Author Organization [facility] Address [address] [place] [address] Care Team Providers Name Role Phone Robert Chambers MD Primary Care Provider Encounter Details Date Type Department Care Team Description 03/02/2016 Results Only [facility] Debbie Hayes, [address], [place] [address] (Wo rk) Social History Tobacco Use Types Packs/Day Years Used Date Never Assessed Sex Assigned at Date Recorded Not on file documented as of this encounter Plan of Treatment Not on filedocumented as of this encounter Procedures Procedure Name Priority Date/Time Associated Diagnosis Comme [facility] SURGICAL PATHOLOGY Routine 03/02/2016 8:33 EDT Re sults for this procedure are i n the results section. documented in this encounter Results SURGICAL PATHOLOGY (03/02/2016 8:33 EDT) Pathology Report: SURGICAL PATHOLOGY REPORT [facility] Reports generated via electronic interface conta in original data; [facility] however they are lacking the format of the original re port. SERVICES Caution should be taken when reading/interpreting unfo rmatted reports. Name: ? LEANDRO BARNHART ? Accession #: ? [id number] ? : ? 1945 (Age: [age]) ??F ? Collect Date: ? 03/02/2016 ? Location: ? [facility] ? Receive Date: ? 03/03/2016 ? Provider: DEBBIE HAYES DO Copy to: ROBERT CERNA MD ? Final Pathologic Diagnosis: A. SMALL BOWEL, SECOND PORTION OF DUODENUM, BIOPSY: - ??Duodenal mucosa with no significant abnormality. B. STOMACH, ANTRUM, BIOPSY: - ??Antral mucosa with reactive gastropathy. - ??No evidence of Helicobacter pylori on H&E. C. STOMACH, GREATER CURVE, BIOPSY: - ??Oxyntic mucosa with mild reactive gastropathy. - ??No evidence of Helicobacter pylori on H&E. D. ESOPHAGUS, 32 CM, BIOPSY: - ??Squamous mucosa with no significant abnormality. E. COLON, CECUM ULCERS, BIOPSY: - ??Focally active colitis w ith increased eosinophils and architectural disarray. See comment. - ??Negative for dysplasia. F. SMALL BOWEL, TERMINAL ILEUM AT 78 CM, BIOPSY: - ??Superficial enteric mucosa with no significant abn ormality. G. COLON, ASCENDING, BIOPSY: - ??Colonic mucosa with focal aphthous, otherwise unre markable. ?? H. COLON, TRANSVERSE, BIOPSY: - ??Colonic mucosa with no significant abnormality. ?? I. COLON, DESCENDING, BIOPSY: - ??Colonic mucosa with no significant abnormality. ?? J. COLON, SIGMOID, BIOPSY: - ??Colonic mucosa with no significant abnormality. ?? K. RECTUM, BIOPSY: - ??Colorectal mucosa with no significant abnormality. ?? Comment: Part E: There is up to 65 eosinophils per high power f ield, with occasional intraepithelial component. Features are not entirely s pecific but most suggestive of medication/sarah g effect (i.e. NSAIDs); other possibilities include food allergy or less likely evolving Crohn's, amongst others. ??CMV (DDG9/CCH2, Dako) (E1): Negative NOTE: ??One or more of the reagents used in imm unoperoxidase testing in this case may not have been cleared or approved by the U.S. Food and Drug Administration (FDA). ??The FDA has determined that such clearance or approval is not necessary. ??These tests are used for clinical purposes. ??They should not be regarded as investigational or for research. ??These r eagents' performance characteristics have been determined by [facility]. ??The positive and negative controls worked ap propriately. This laboratory is certified unde r the Clinical Laboratory Improvement Amendments of 1988 (CLIA-88) as qualified to perform high complexity clinical laboratory testing. ?? Document reviewed and electronically signed by: ALFREDO BUCIO MD Report ??Date: 03/12/2016 19:13 By the signature above, the attending physician certif ies that he/she has personally conducted a gross and/or microscopic examin ation of the described specimens and rendered or confirmed the above diagnosi s. Specimen(s) Received: A. ??2nd portion biopsy B. ??Antrum biopsy C. ??Greater curve biopsy D. ??Esophagus at 32 cm biopsy E. ??Ulcers cecum biopsy F. ??Terminal ileum biopsy at 78 cm G. ??Ascending colon biopsy H. ??Transverse colon biopsy I. ?? Descending colon biopsy J. ??Sigmoid colon K. ??Rectal biopsy Clinical History: Guaiac-positive stool, dysph agia; A-E. EGD; F-K. colon; clinical diagnosis code: R19.5 Gross Description: A. ?Received in formalin labelled with proper p atient identification (initials N, D) and 2nd portion biopsy are two pink-varela tissues (0.4 x 0.3 x 0.2 cm and 0.6 x 0.3 x 0.1 cm). Entirely submitted in A1. B. ?Received in formalin labelled with proper p atient identification (initials N, D) and antrum biopsy is a single pink-varela tissue fragment (0.5 x 0.2 x 0.1 cm). Submitted intact in B1. C. ?Received in formalin labelled with proper p atient identification (initials N, D) and greater curve is a single pink-varela tissue fragment (0.4 x 0.3 x 0.1 cm). Submitted intact in C1. D. ?Received in formalin labelled with proper p atient identification (initials N, D) and esophag us 32 cm are two pink-varela tissues (each 0.3 x 0.2 x 0.1 cm). Entirely submitted in D1. E. ?Received in formalin labelled with proper p atient identification (initials N, D) and ulcers cecum biopsy are three pink-varela tissues (0.2 x 0.2 x 0.2 cm to 0.5 x 0.2 x 0.1 cm). Entirely submitted in E1. F. ?Received in formalin labelled with proper p atient identification (initials N, D) and terminal ileum biopsy at 78 cm are two pink-varela tissues (0.3 x 0.2 x 0.1 cm and 0.9 x 0.2 x 0.1 cm). Entirely submitted in F1. G. ?Received in formalin labelled with proper p atient identification (initials N, D) and ascendi ng colon biopsy are two pink-varela tissues (0.2 x 0.2 x 0.2 cm and 0.7 x 0.1 x 0.1 cm). Entirely submitted i n G1. H. ?Received in formalin labelled with proper p atient identification (initials N, D) and transve rse colon are two pink-varela tissues (0.3 x 0.2 x 0.1 cm and 0.5 x 0.1 x 0.1 cm). Entirely submitted in H1. I. ?Received in formalin labelled with proper p atient identification (initials N, D) and descending colon biopsy is a sin gle pink-varela tissue fragment (0.9 x 0.2 x 0.1 cm). Submitted intact in I1. J. ?Received in formalin labelled with proper p atient identification (initials N, D) and sigmoid colon biopsy are two pink-varela tissues (0.2 x 0.2 x 0.1 cm and 0.4 x 0.2 x 0.1 cm). Entirely submitted in J1. K. ?Received in formalin labelled with proper p atient identification (initials N, D) and rectal biopsy are two pink-varela tissues (0.2 x 0.2 x 0.1 cm and 0.4 x 0.2 x 0.1 cm). Entirely submitted in K1Tomas Parks 03/05/2016 11:17 AM End of Report Specimen Performing Organization Address City/State/ZIP Code Phon e Number [facility] [address] [place] [address] SERVICES documented in this encounter Visit Diagnoses Not on filedocumented in this encounter Care Teams Leader Tier Relationship Specialty Start Date End Date Robert Chambers MD PCP - General 08/08/15 03/07/16 documented as of this encounter
--- OUTSIDE RECORDS SUMMARY | 2022-04-19 01:36 | XMS_ITS | Encounter Summary ---
:1945 Author Organization [facility] Address [address] [place] [address] Care Team Providers Name Role Phone Kerwin Chambers MD Primary Care Provider Encounter Details Date Type Department Care Team Description 03/02/2016 Hospital Encounter [facility] Unknown, Provider, [facility] [address] [facility] [phone] [place] [address] (Work) [phone] Social History Tobacco Use Types Packs/Day Years Used Date Never Assessed Sex Assigned at Date Recorded Not on file documented as of this encounter Discharge Disposition Disposition Code Departure Means Destination Home or Self [place] documented in this encounter Plan of Treatment Not on filedocumented as of this encounter Visit Diagnoses Not on filedocumented in this encounter Care Teams Solutions Delivery Consultant Relationship Specialty Start Date End Date Kerwin Chambers MD PCP - General 08/08/15 03/07/16 documented as of this encounter
--- OUTSIDE RECORDS SUMMARY | 2022-04-19 01:36 | XMS_ITS | Encounter Summary ---
:1945 Author Organization [facility] Address [address] [place] [address] Care Team Providers Name Role Phone Unavailable Primary Care Provider Unavailable Encounter Details Date Type Department Care Team Description 03/29/2004 Results Only [facility] - Bernie henson, Earlene Fraser MD conversion [address] [place] [phone] (Wo rk) Social History Tobacco Use Types Packs/Day Years Used Date Never Assessed Sex Assigned at Date Recorded Not on file documented as of this encounter Plan of Treatment Not on filedocumented as of this encounter Procedures Procedure Name Priority Date/Time Associated Diagnosis Comme [facility] SURGICAL PATHOLOGY Routine 03/29/2004 0:00 Resul ts for this EDT procedure are i n the results section. documented in this encounter Results SURGICAL PATHOLOGY (03/29/2004 0:00 EDT) Pathology Report: SURGICAL PATHOLOGY REPORT [facility] Reports generated via electronic interface contain jessica ginal data; LAB however they are lacking the format of the original re port. Caution should be taken when reading/interpreting unfo rmatted reports. Name: ? LEANDRO BARNHART N ? Accession #: ? [id number] ? : ? 1945 (Age: 58) ??F ? Collect Date: ? 03/29/2004 ? Location: ? [facility] ? Receive Date: ? 004 ? Provider: EARLENE JOLLY MD Copy to: ROBERT TORRES MD ? Final Pathologic Diagnosis: ? Bladder, right lateral anterior wall, biopsies: 1. ?Papillary urothelial ca rcinoma, non-invasive, Grade I/III. ?? 2. ?No muscularis propria is identified. 3. ?Adjacent flat urothelium with mild re active features. Comment: ? This case was shown a t intradepartmental consultation conference on 04/04/04. (Dr. Dc)/leon Document reviewed and electronically signed by: Selina Dc MD Report ??Date: 04/04/2004 15:32 By the signature above, the attending physician certif ies that he/she has personally conducted a gross and/or microscopic examin ation of the described specimens and rendered or confirmed the above diagnosi s. Specimen(s) Received: ? Bladder tumor right lateral anterior wall Clinical History: ? Transitional cell carcinoma of the bladder Gross Description: ? Received in formalin labelled Ne lson and bladder tumor right lateral anterior wall are five, irregular, varela-pink sof t tissues, three of which are surfaced by a glistening, wh ite-pink mucosa, averaging 0.2 x 0.2 x 0.2 cm which is submitted in toto labelled (A1) and (A2). ??(Rosalia shirley/tammi End of Report Specimen Performing Organization Address City/State/ZIP Code Phon e Number [facility] [address] [place] [address] SERVICES [facility] [address] [place] [address] documented in this encounter Visit Diagnoses Not on filedocumented in this encounter
--- OUTSIDE RECORDS SUMMARY | 2022-04-19 01:36 | XMS_ITS | Encounter Summary ---
:1945 Author Organization [facility] [place] [address] Care Team Providers Name Role Phone Kerwin Sharma MD Primary Care Provider Encounter Details Date Type Department Care Team Description 06/25/2011 Hospital Encounter [place] [facility] [place] [address] [place] [address] Dr Guajardo ROWDY [phone] Social History Tobacco Use Types Packs/Day Years Used Date Former Smoker Sex Assigned at Date Recorded Not on file documented as of this encounter Medications at Time of Discharge Medication Sig Dispensed Refills Start Date End Date naproxen sodium (ALEVE) 220 mg Take 220 mg by 0 tabletIndications: pain mouth 2 times daily (with meals). Indications: Pain GLUC HCL/GLUC FLORIAN/AC-D-GLUCOS Take by mouth. 0 (GLUCOSAMINE COMPLEX ORAL) VITAMIN E/FLAXSEED OIL (OMEGA-3 Take by mouth. 0 FLAXSEED OIL ORAL) DILTiazem (CARDIZEM CD) 240 mg 240MG = 1 0 11/14 24 hr capsule Capsule(s), PO, Once daily lovastatin (MEVACOR) 40 mg 40MG = 1 0 7 tablet Tablet(s), PO, Once daily PARoxetine (PAXIL) 30 mg tablet 30M.5-1 tab, 0 11/14/2006 PO, Once daily carbidopa-levodopa (SINEMET) 2 Tablet(s), PO, 0 0 11/14/2006 25-100 mg per tablet QHS multivitamin with minerals 0 7 tablet lisinopril (PRINIVIL;ZESTRIL) 40MG = 1 0 2006 40 mg tablet Tablet(s), PO, Once daily hydrochlorothiazide (MICROZIDE) 12.5MG = 1 0 10/31 12.5 mg capsule Capsule(s), PO, Once daily oxybutynin (DITROPAN) 5 mg 5MG = 1 0 7 tablet Tablet(s), PO, Three times daily documented as of this encounter Plan of Treatment Not on filedocumented as of this encounter Procedures Procedure Name Priority Date/Time Associated Comments Diagnosis XR HAND DIAGNOSTIC 1 Routine 06/25/2011 11:56 AM Pain in limb Results for this OR 2 VIEWS EDT procedure are i n the results section. documented in this encounter Results XR HAND DIAGNOSTIC 1 OR 2 VIEWS (06/25/2011 11:56 AM EDT) Anatomical Region Laterality Modality Hand N/A Radiographic Imaging Specimen (Source) Anatomical Collection Method Collection Time Re ceived Time Location / / Volume Laterality 06/25/2011 11:56 AM EDT Impressions 06/26/2011 8:41 AM EDT IMPRESSION: ?? 1. ??No fracture or erosions. ??Probable ulnar impaction of the lunate. Narrative 06/26/2011 8:41 AM EDT RIGHT HAND, THREE VIEWS, 06/25/11: HISTORY: ?? Right hand pain. COMPARISON STUDY: ??None. FINDINGS: ??The bone mineralization is s lightly decreased. ??No definite soft tissue swelling. IP JOINTS: ??No ankylosis, periostitis o r erosions. MCP JOINTS: ??Right first MCP joint oste oarthritis characterized by small osteophyte formation. ??No erosions. RADIOCARPAL JOINT: ??Normal alignment. ? ?A subchondral crescent radiolucency in the ulnar base of the lunate. ??This sug gests ulnar impaction. ULNAR STYLOID: ??Two cysts or erosions i n the ulnar styloid. Procedure Note Cindy Chavarria MD - 06/26/2011Formatt ing of this note might be different from the original. RIGHT HAND, THREE VIEWS, 06/25/11: HISTORY: Right hand pain. COMPARISON STUDY: None. FINDINGS: The bone mineralization is sli ghtly decreased. No definite soft tissue swelling. IP JOINTS: No ankylosis, periostitis or erosions. MCP JOINTS: Right first MCP joint osteoa rthritis characterized by small osteophyte formation. No erosions. RADIOCARPAL JOINT: Normal alignment. A s ubchondral crescent radiolucency in the ulnar base of the lunate. This sugge sts ulnar impaction. ULNAR STYLOID: Two cysts or erosions in the ulnar styloid. IMPRESSION IMPRESSION: 1. No fracture or erosions. Probable uln ar impaction of the lunate. Armen Emerson MD IMG DX ORDERABLES documented in this encounter Visit Diagnoses Diagnosis Hand pain Pain in limb documented in this encounter Care Teams Claim Clerk Relationship Specialty Start Date End Date Kerwin Sharma MD PCP - General 06/25/[address] [place] [address] documented as of this encounter
[2022-04-19 09:18] LABS: Estimated GFR 53.91 (mL/min/1.73m2)
== END 2022-04-19 01:34 | disposition home or self-care (01) ==
LOC: LBO 01:34
PROVIDERS: PCP Nurse Practitioner Family; Visit Provider Nurse Practitioner Family
DX: I10 Essential (primary) hypertension (principal)
CPT/HCPCS: 36415; 82565

== ENCOUNTER → 2022-05-03 12:33 | Outpatient (CLI) | payer MEDICARE, SELFPAY ==
--- NOTE | 2022-05-03 | DI.RAD_ITS ---
Exam(s) XR THUMB LT EXAM: XR THUMB LT CLINICAL HISTORY: LEFT THUMB PAIN--M79.645--INJURY. TECHNIQUE: 2D digital imaging was performed. Three views. COMPARISON: None. FINDINGS: BONES: No acute fracture is present. No bony destructive lesion is seen. JOINTS: No dislocation present. Degenerative changes 1st carpometacarpal joint. Minimal degenerativ e changes interphalangeal joint and metacarpophalangeal joint. SOFT TISSUE: Normal. IMPRESSION: No acute abnormality. DATA REPOSITORY: RADIATION DOSE DELIVERED:
--- NOTE | 2022-05-03 | DI.RAD_ITS ---
Exam(s) XR FOOT LT COMPLETE EXAM: XR FOOT LT COMPLETE CLINICAL HISTORY: FOOT PAIN--M79.672--INJURY. TECHNIQUE: 2D digital imaging was performed. Three views. COMPARISON: No exams were available for comparison FINDINGS: Exam is somewhat limited by suboptimal positioning. BONES: No acute fracture is present. No bony destructive lesion is seen. Heel spurs. JOINTS: No dislocation present. Mild intertarsal degenerative changes. SOFT TISSUE: Normal. IMPRESSION: Heel spurs and mild degenerative changes. No acute abnormality. DATA REPOSITORY: RADIATION DOSE DELIVERED:
== END ==
PROVIDERS: PCP Nurse Practitioner Family; Visit Provider Physician Assistant Medical
DX: M79.645 Pain in left finger(s) (principal); M19.072 Primary osteoarthritis, left ankle and foot
CPT/HCPCS: 73140; 73630

== ENCOUNTER 2022-06-20 18:58 | Outpatient (CLI) | payer MEDICARE, SELFPAY ==
[2022-06-20 14:55] LABS: Anion Gap 7.2 mmol/L (3-11); BUN 26 mg/dL (7-18); CO2 30.8 mmol/L (21.0-32.0); Calcium 10.1 mg/dL (8.5-10.1); Chloride 104 mmol/L (98-107); Estimated GFR 58.39 (mL/min/1.73m2); Glucose 93 mg/dL (74-106); Potassium 3.7 mmol/L (3.5-5.1); Sodium 142 mmol/L (136-145)
== END 2022-06-20 18:59 | disposition home or self-care (01) ==
LOC: LBO 19:01
PROVIDERS: PCP Nurse Practitioner Family; Visit Provider Nurse Practitioner Family
DX: R60.0 Localized edema (principal); R53.1 Weakness
CPT/HCPCS: 36415; 80048

== ENCOUNTER 2023-03-27 09:08 | Outpatient (CLI) | payer MEDICARE, SELFPAY ==
[2023-03-27 09:34] LABS: Calculated LDL 74 mg/dL (<100); Cholesterol 154 mg/dL (<200); Estimated GFR 58.39 (mL/min/1.73m2); HDL Cholesterol 61 mg/dL (40-60); Potassium 3.6 mmol/L (3.5-5.1); Triglyceride 97 mg/dL (<150)
== END 2023-03-27 09:09 | disposition home or self-care (01) ==
LOC: LBO 09:09
PROVIDERS: PCP Nurse Practitioner Family; Visit Provider Nurse Practitioner Family
DX: I10 Essential (primary) hypertension (principal); E78.5 Hyperlipidemia, unspecified
CPT/HCPCS: 36415; 80061; 82565; 84132

== ENCOUNTER 2023-06-05 09:30 | Emergency (ER) | payer MEDICARE, SELFPAY ==
[2023-06-05 09:39] VITALS: BP 138/47; PULSE 95; RESP 18; TEMP 36.5; O2SAT 96
--- NOTE | 2023-06-05 10:20 | ED.GENADUL_ITS ---
Discharge Plan Disposition Patient Disposition: Home Condition: Good Discharge Details Clinical Impression: Chronic back pain Primary Care Provider: Bebeto Persaud ED Provider: Veronica Lino Home Meds and New Rx's Prescriptions: New lidocaine 5 % adhesive patch,medicated 2 patch topical DAILY Qty: 30 0RF Rx Instructions: leave on most painful area for up to 12 hrs No Action acetaminophen 500 mg capsule 500 mg PO Q6H PRN beet root 500 mg PO DAILY metformin 500 mg tablet 500 mg PO DAILY Qty: 90 3RF furosemide 20 mg tablet 20 mg PO QAM Qty: 90 3RF losartan-hydrochlorothiazide 100-12.5 mg tablet 1 tab PO DAILY Qty: 90 3RF lovastatin 40 mg tablet 40 mg PO DAILY Qty: 90 3RF omeprazole 20 mg capsule,delayed release(DR/EC) 20 mg PO BID Qty: 180 3RF paroxetine HCl [Paxil] 30 mg tablet 30 mg PO DAILY Qty: 90 3RF amitriptyline 25 mg tablet 25 mg PO QHS Qty: 90 3RF omega-3 fatty acids-fish oil 300-1,000 mg capsule 2 cap PO DAILY Qty: 180 3RF mirabegron 50 mg tablet extended release 24 hr 50 mg PO Q24H Qty: 90 3RF multivitamin 1 EACH capsule 1 cap PO DAILY Discharge Instructions Instructions: Chronic Back Pain (DC) Additional Instructions: Call your primary care doctor today to schedule an appointment to follow up on your visit here and to discuss your pain regimen at home. You can use lidocaine patches as needed for pain; this was sent to your pharmacy. Return to the emergency department for new or worsening symptoms including new/different/worse pain, new numbness or weakness in your legs, or if you have any other concerns. Referrals: Bebeto Persaud, [facility]ER [Primary Care Provider] - Medical Decision Making 78yo female presenting with several months to several years of back and hip pain. Pain is unchanged in character, more persistent, and referctaroy to home tylenol. Vital signs and exam reassuring, no systemic symptoms, normal neurologic exam, no red flags for back pain to suggest cauda equina, spinal fracture, epidural abscess, or other concerning etiology. Would not pursue imaging/CT/MRI given reassuring history and exam. Given IM toradol here and prescribed lidocaine patch, advised followup with PCP. Discharged home; discharge instructions including return precautions were reviewed with patient who verbalized understanding. All questions were answered and they are in full agreement with the plan. HPI General Mode of arrival: ambulatory . Date/Time Provider Initiated Documentation: 06/05/23 09:44 . Limitations to Documentation: no limitations . Information obtained by: patient . HPI Narrative: 78yo female presenting with several months to several years of back and hip pain. Pain is unchanged in character. Is more persistent than usual which prompted presentation to the ED. Has not seen her PCP recently for this it takes forever to get in. Is taking Tylenol at home, no other OTC or prescribed medications. Pain is moderate, dull, low lumbar, and radiates to bialteral hip s. No numbness, weakness, or tingling. No new bowel or bladder incontinence; does have occasional bladder incontinence at baseline from overactive bladder. No saddle anesthesia. No difficulty ambulating. No fevers, No history of spinal instrumentation. She is otherwise in her usual state of health. Related Data Home Medications Medication Instructions Recorded Confirmed multivitamin 1 cap PO DAILY 11/30/12 03/08/23 acetaminophen 500 mg capsule 500 mg PO Q6H PRN 05/02/20 03/08/23 furosemide 20 mg tablet 20 mg PO QAM #90 tabs 09/06/22 03/08/23 losartan 100 1 tab PO DAILY #90 tabs 09/06/22 03/08/23 mg-hydrochlorothiazide 12.5 mg tablet lovastatin 40 mg tablet 40 mg PO DAILY #90 tabs 09/26/22 03/08/23 omeprazole 20 mg capsule,delayed 20 mg PO BID #180 caps 10/17/22 03/08/23 release paroxetine HCl 30 mg tablet (Paxil) 30 mg PO DAILY #90 tabs 10/17/22 03/08/23 amitriptyline 25 mg tablet 25 mg PO QHS #90 tabs 12/12/22 03/08/23 beet root 500 mg PO DAILY 03/08/23 03/08/23 metformin 500 mg tablet 500 mg PO DAILY #90 tab-caps 03/08/23 03/08/23 omega-3 fatty acids-fish oil 300 2 cap PO DAILY #180 caps 04/16/23 mg-1,000 mg capsule mirabegron 50 mg tablet,extended 50 mg PO Q24H #90 tabs 04/22/23 release 24 hr lidocaine 5 % topical patch 2 patch topical DAILY #30 ea 06/05/23 Previous Rx's Medication Instructions Recorded furosemide 20 mg tablet 20 mg PO QAM #90 tabs 09/06/22 losartan 100 1 tab PO DAILY #90 tabs 09/06/22 mg-hydrochlorothiazide 12.5 mg tablet lovastatin 40 mg tablet 40 mg PO DAILY #90 tabs 09/26/22 omeprazole 20 mg capsule,delayed 20 mg PO BID #180 caps 10/17/22 release paroxetine HCl 30 mg tablet (Paxil) 30 mg PO DAILY #90 tabs 10/17/22 amitriptyline 25 mg tablet 25 mg PO QHS #90 tabs 12/12/22 metformin 500 mg tablet 500 mg PO DAILY #90 tab-caps 03/08/23 omega-3 fatty acids-fish oil 300 2 cap PO DAILY #180 caps 04/16/23 mg-1,000 mg capsule mirabegron 50 mg tablet,extended 50 mg PO Q24H #90 tabs 04/22/23 release 24 hr lidocaine 5 % topical patch 2 patch topical DAILY #30 ea 06/05/23 Allergies Allergy/AdvReac Type Severity Reaction Status Date / Time famotidine Allergy Severe mouth Verified 03/08/23 13:36 blisters latex Allergy Intermediate burning Verified 03/08/23 13:36 adhesive Allergy Mild RASH Verified 03/08/23 13:36 mercury (elemental) Allergy Unknown Verified 03/08/23 13:36 tolterodine tartrate Allergy Unknown Verified 03/08/23 13:36 [From Detrol] lisinopril AdvReac Unknown Verified 03/08/23 13:36 nylon AdvReac Mild Skin Uncoded 03/08/23 13:36 Irritation soaps AdvReac Mild skin Uncoded 03/08/23 13:36 irritation General Stated Complaint: Nk/Back Pain ASA: 3 Review of Systems Narrative: see HPI PFSH All Active Problems (Updated 06/05/23 @ 10:21 by Veronica Lino MD) Chronic back pain (Acute) Essential hypertension (Chronic) GERD (gastroesophageal reflux disease) (Chronic 12/05/15) Generalized weakness (Acute) Falls frequently (Acute) Insomnia (Acute) Referred otalgia of left ear (Acute) MONIQUE treated with BiPAP (Acute) Overactive bladder (Acute 01/12/15) Xerostomia (Acute) Pedal edema (Acute) Sore throat (Acute) Swallowing pain or burning (Acute) Type 2 diabetes mellitus without complication, without long-term current use of insulin (Acute 07/08/17) Medical History Allergic rhinitis Benign paroxysmal positional vertigo (03/04/18) Crohn's disease of small intestine without complication (06/15/16) Depressive disorder Diabetes mellitus Ear pain, left Globus sensation (12/05/15) Headache History of tobacco use Hyperlipidemia Mantoux: positive pt. is not aware of this Obesity MONIQUE (obstructive sleep apnea) (12/05/15) Peripheral neuralgia Prediabetes (06/24/17) Seasonal allergies (01/12/15) Sensorineural hearing loss, bilateral (12/05/15) TMJ (temporomandibular joint disorder) (12/05/15) Urge incontinence Vitamin D deficiency (07/08/17) Surgical History Abdominal hysterectomy 1980 ADHESIONS (~1970) Bladder Surgery CANCER TUMOR 1998 Extraction of cataract 07/28/15; DR. 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 Status post appendectomy 1966 Family History Mother , 77 Heart disease [place] Hyperlipidemia Cancer Depression Father , 60 Heart disease [place] Hyperlipidemia Alcohol use disorder Grandmother Heart disease [place] Brother , 29 Depression Social History (Updated 03/09/23 @ 11:25 by Melly Brooks) Smoking/Tobacco Use Status: Former Tobacco Use tobacco type: cigarettes Quit Date: 06/30/81 Tobacco: How many years used: 20 Second Hand Exposure: Yes Smoking risk assessment performed?: Yes Alcohol Intake: former Drug use: Never Substance use type: does not use Caregiver/Support person: No Household members: spouse Communication Needs: Hard of Hearing and Corrective Lenses Do you need help understanding health information?: Rarely Pets and animals: Yes Pets and animals: dog(s) Current gender identity: female What is your relationship status?: How often do you talk on the phone with friends or family?: never How often do you get together with friends or relatives?: decline to answer How often do you attend adventist or scientology services?: 1-3 times per year Do you belong to any clubs or organized social groups?: no Panel score (0-1 are the most socially isolated patients): 1 What type of physical activity do you participate in: none Frequency: does not exercise Marlene/Adventism: None Special marlene needs: No Seatbelt use: never Helmet use: No Drive intox or ride w/intox driver starting gate: No Additional Social history: pt. declines to answer That's not your buisness Exam Narrative Exam Narrative: General: Alert, well appearing, well nourished, in no acute distress. Head: Normocephalic, atraumatic Neck: Trachea midline, Neck supple. Cardiac: No cyanosis. Resp: No respiratory distress. Speaking in full sentences. Abd: Non-distended : No suprapubic tenderness. No CVA tenderness. Extremities: No deformities. No peripheral edema. Back: No midline tenderness. Neuro: GCS 15. Motor- 5/5 strength symmetric bilateral upper and lower extremities Sensation- Intact to light touch and symmetric multiple dermatomes including upper and lower extremities Gait/station: Normal stance. No truncal ataxia. Steady gait with equal normal steps Course Vital Signs Vital signs: Vital Signs Temperature 36.5 C 06/05/23 09:39 Pulse 95 H 06/05/23 09:39 Respiratory Rate 18 06/05/23 09:39 Blood Pressure 138/47 L 06/05/23 09:39 Pulse Oximetry 96 06/05/23 09:39 Temperature 36.5 C 06/05/23 09:39 Temperature Source Tympanic 06/05/23 09:39 Pulse 95 H 06/05/23 09:39 Respiratory Rate 18 06/05/23 09:39 Blood Pressure 138/47 L 06/05/23 09:39 Pulse Oximetry 96 06/05/23 09:39 Oxygen Delivery Method Room Air 06/05/23 09:39 Oxygen Flow Rate 0 06/05/23 09:39 Pain Level 3 06/05/23 09:39
[2023-06-05] MEDS: Ketorolac 15 MG/ML VIAL IM (10:52)
[2023-06-05] MEDS: Lidocaine 5% Patch 2 PATCH TP (10:52)
== END 2023-06-05 10:52 | disposition home or self-care (01) ==
PROVIDERS: Emergency Provider Student in an Organized Health Care Education/Training Program; PCP Nurse Practitioner Family
DX: M54.9 Dorsalgia, unspecified (principal); G89.29 Other chronic pain
CPT/HCPCS: 96372; 99283; 99284; J1885

== ENCOUNTER 2023-08-25 10:17 | Emergency (ER) | payer MEDICARE, SELFPAY ==
[2023-08-25 10:22] VITALS: BP 163/70; PULSE 73; RESP 18; TEMP 36.7; O2SAT 98
--- NOTE | 2023-08-25 10:30 | DI.RAD_ITS ---
Exam(s) XR SHOULDER LT COMPLETE 2+V EXAM: XR SHOULDER LT COMPLETE 2+V CLINICAL HISTORY: Left shoulder pain. TECHNIQUE: 2D digital imaging was performed of the left shoulder. Six images were obtained. AP, Gr ashey, Y-view and axillary views were obtained. COMPARISON: CR RIGHT SHOULDER COMPLETE from 03/24/2015 FINDINGS: BONES: No acute fracture is present. No bony destructive lesion is seen. JOINTS: No dislocation present. There are degenerative changes seen at both the glenohumeral and the acromioclavicular joint. SOFT TISSUE: Normal. IMPRESSION: No acute fracture or dislocation. DATA REPOSITORY: RADIATION DOSE DELIVERED:
--- NOTE | 2023-08-25 10:39 | ED.GENADUL_ITS ---
Discharge Plan Disposition Patient Disposition: Home Discharge Details Clinical Impression: Acute left otitis media, Acute pain of left shoulder Primary Care Provider: Bebeto Persaud ED Provider: Kerwin Gaming [place] Meds and New Rx's Prescriptions: New amoxicillin-pot clavulanate 875-125 mg tablet 1 tab PO BID 7 Days Qty: 14 0RF Continued acetaminophen 500 mg capsule 500 mg PO Q6H PRN beet root 500 mg PO DAILY metformin 500 mg tablet 500 mg PO DAILY Qty: 90 3RF lovastatin 40 mg tablet 40 mg PO DAILY Qty: 90 3RF omeprazole 20 mg capsule,delayed release(DR/EC) 20 mg PO BID Qty: 180 3RF paroxetine HCl [Paxil] 30 mg tablet 30 mg PO DAILY Qty: 90 3RF amitriptyline 25 mg tablet 25 mg PO QHS Qty: 90 3RF omega-3 fatty acids-fish oil 300-1,000 mg capsule 2 cap PO DAILY Qty: 180 3RF mirabegron 50 mg tablet extended release 24 hr 50 mg PO Q24H Qty: 90 3RF furosemide 20 mg tablet 20 mg PO QAM Qty: 90 3RF losartan-hydrochlorothiazide 100-12.5 mg tablet 1 tab PO DAILY Qty: 90 3RF multivitamin 1 EACH capsule 1 cap PO DAILY lidocaine 5 % adhesive patch,medicated 2 patch topical DAILY Qty: 30 0RF Rx Instructions: leave on most painful area for up to 12 hrs Discharge Instructions Instructions: Ear Infection (ED), Shoulder Pain (ED) Additional Instructions: You were seen in the emergency department for your ear pain. You have an ear infection for which you are receiving antibiotics that you should take as directed. Please return to the emergency department if you develop any significant swelling behind your ear as we discussed or any fevers. Your shoulder x-ray showed no sign of any fractures. Please follow-up as needed next week with your primary care provider. HPI General Date/Time Provider Initiated Documentation: 08/25/23 10:30 . HPI Narrative: MDM This is an overall very well-appearing normothermic and not tachycardic 78-year-old female with left ear pain and effusion concerning for acute otitis media for which patient will receive treatment with amoxicillin clavulanic acid. No pain or proportion to suggest necrotizing soft tissue infection. No mastoid tenderness to suggest mastoiditis. Good range of motion in the neck so I am not suspicious for retropharyngeal abscess. No sore throat to suggest peritonsillar abscess. No headache to suggest meningitis. Patient is not altered to suggest encephalitis. No rash to suggest zoster. No signs of perforated TM. No recent swimming to suggest increased risk for acute otitis externa. No recent chiropractic to suggest cervical arterial dissection. Patient also complains of left shoulder pain and fell out of bed several weeks ago. She is right-hand dominant. We will obtain a left shoulder plain film though my suspicion for any acute osseous abnormalities is exceedingly low given her reassuring exam. She is able to touch her left hand to her contralateral right shoulder making my suspicion for dislocation low. No significant tenderness no ecchymosis to suggest acute osseous abnormality. If x-ray is negative will discharge with course of amoxicillin clavulanic acid and PCP follow-up as needed. Vitals notable for elevated blood pressure however patient has no signs of endorgan damage and carries a history of hypertension. 11:10 AM Preliminary virtual radiology read showing no evidence of acute fracture malalignment nor dislocation. Will discharge patient with empiric trial of expectant outpatient management. Chronic conditions affecting the care of the patient: Hypertension History obtained from an outside historian: N/A External record review: No [facility] [place] records Medications: Amoxicillin clavulanic acid acetaminophen Social determinants of health affecting disposition: N/A Management discussed with: N/A Treatment/interventions considered: N/A Response to therapies provided: N/A HPI This is a [id number] 78-year-old female arrived to the emergency department via private vehicle in the setting of left ear pain and left shoulder pain. Patient reports that she attempted to clean out her left ear several weeks ago with a Q-tip. As result she subsequently has had ear pain. She remotely has had prior ear infections. She says that she also several weeks ago fell out of bed landing on her left shoulder. She has a history of left shoulder dislocations. She does not feel that she has dislocated her shoulder at this point. She denies routine tobacco, ethanol, and illicits. She denies any recent fevers chills nausea vomiting. No dysuria nor frequency. No recent fevers. No change in hearing. Exam General: Well-appearing in no acute distress speaking in complete sentences. Head: Normocephalic, atraumatic. Eye: Extraocular eye movements intact. No conjunctival injection. No scleral icterus. Ear, nose, mouth, throat: Left middle ear effusion. Mildly bulging TM. No significant erythema. No mastoid tenderness. Normal voice, handling secretions normally. Neck: Trachea midline. Cardiovascular: Well-perfused distal extremities. Respiratory: Nonlabored respiration. Gastrointestinal: Nondistended abdomen. Musculoskeletal: No edema. Moving all 4 extremities spontaneously. Left shoulder reassuring normal inspection. Patient is able to touch her left hand to her contralateral right shoulder. No clavicular tenderness. Patient is able to fully flex her left shoulder and fully extend her left shoulder. She is able to abduct her left shoulder degrees. Left hand warm well perfused with 2+ left radial pulse. Skin: Normal for age and race, grossly normal temperature and turgor. No acute rash. Neurologic: Alert and appropriate, no apparent acute deficits. Psychiatric: Mood and manner are appropriate. Grooming and personal hygiene are appropriate. Related Data Home Medications Medication Instructions Recorded Confirmed multivitamin 1 cap PO DAILY 11/30/12 03/08/23 acetaminophen 500 mg capsule 500 mg PO Q6H PRN 05/02/20 08/25/23 lovastatin 40 mg tablet 40 mg PO DAILY #90 tabs 09/26/22 03/08/23 omeprazole 20 mg capsule,delayed 20 mg PO BID #180 caps 10/17/22 08/25/23 release paroxetine HCl 30 mg tablet (Paxil) 30 mg PO DAILY #90 tabs 10/17/22 08/25/23 amitriptyline 25 mg tablet 25 mg PO QHS #90 tabs 12/12/22 08/25/23 beet root 500 mg PO DAILY 03/08/23 08/25/23 metformin 500 mg tablet 500 mg PO DAILY #90 tab-caps 03/08/23 08/25/23 omega-3 fatty acids-fish oil 300 2 cap PO DAILY #180 caps 04/16/23 08/25/23 mg-1,000 mg capsule mirabegron 50 mg tablet,extended 50 mg PO Q24H #90 tabs 04/22/23 08/25/23 release 24 hr lidocaine 5 % topical patch 2 patch topical DAILY #30 ea 06/05/23 08/25/23 furosemide 20 mg tablet 20 mg PO QAM #90 tabs 08/23/23 08/25/23 losartan 100 1 tab PO DAILY #90 tabs 08/23/23 08/25/23 mg-hydrochlorothiazide 12.5 mg tablet amoxicillin 875 mg-potassium 1 tab PO BID 7 days #14 tabs 08/25/23 clavulanate 125 mg tablet Previous Rx's Medication Instructions Recorded lovastatin 40 mg tablet 40 mg PO DAILY #90 tabs 09/26/22 omeprazole 20 mg capsule,delayed 20 mg PO BID #180 caps 10/17/22 release paroxetine HCl 30 mg tablet (Paxil) 30 mg PO DAILY #90 tabs 10/17/22 amitriptyline 25 mg tablet 25 mg PO QHS #90 tabs 12/12/22 metformin 500 mg tablet 500 mg PO DAILY #90 tab-caps 03/08/23 omega-3 fatty acids-fish oil 300 2 cap PO DAILY #180 caps 04/16/23 mg-1,000 mg capsule mirabegron 50 mg tablet,extended 50 mg PO Q24H #90 tabs 04/22/23 release 24 hr lidocaine 5 % topical patch 2 patch topical DAILY #30 ea 06/05/23 furosemide 20 mg tablet 20 mg PO QAM #90 tabs 08/23/23 losartan 100 1 tab PO DAILY #90 tabs 08/23/23 mg-hydrochlorothiazide 12.5 mg tablet amoxicillin 875 mg-potassium 1 tab PO BID 7 days #14 tabs 08/25/23 clavulanate 125 mg tablet Allergies Allergy/AdvReac Type Severity Reaction Status Date / Time famotidine Allergy Severe mouth Verified 03/08/23 13:36 blisters latex Allergy Intermediate burning Verified 03/08/23 13:36 adhesive Allergy Mild RASH Verified 03/08/23 13:36 mercury (elemental) Allergy Unknown Verified 03/08/23 13:36 tolterodine tartrate Allergy Unknown Verified 03/08/23 13:36 [From Detrol] lisinopril AdvReac Unknown Verified 03/08/23 13:36 nylon AdvReac Mild Skin Uncoded 03/08/23 13:36 Irritation soaps AdvReac Mild skin Uncoded 03/08/23 13:36 irritation General Stated Complaint: EarProblem ASA: 4 PFSH All Active Problems (Updated 08/25/23 @ 10:45 by Kerwin Gaming MD) Acute pain of left shoulder (Acute) Acute left otitis media (Acute) Essential hypertension (Chronic) GERD (gastroesophageal reflux disease) (Chronic 12/05/15) Generalized weakness (Acute) Falls frequently (Acute) Insomnia (Acute) Referred otalgia of left ear (Acute) MONIQUE treated with BiPAP (Acute) Overactive bladder (Acute 01/12/15) Xerostomia (Acute) Pedal edema (Acute) Sore throat (Acute) Swallowing pain or burning (Acute) Type 2 diabetes mellitus without complication, without long-term current use of insulin (Acute 07/08/17) Medical History Allergic rhinitis Benign paroxysmal positional vertigo (03/04/18) Crohn's disease of small intestine without complication (06/15/16) Depressive disorder Diabetes mellitus Ear pain, left Globus sensation (12/05/15) Headache History of tobacco use Hyperlipidemia Mantoux: positive pt. is not aware of this Obesity MONIQUE (obstructive sleep apnea) (12/05/15) Peripheral neuralgia Prediabetes (06/24/17) Seasonal allergies (01/12/15) Sensorineural hearing loss, bilateral (12/05/15) TMJ (temporomandibular joint disorder) (12/05/15) Urge incontinence Vitamin D deficiency (07/08/17) Surgical History Abdominal hysterectomy 1980 ADHESIONS (~1970) Bladder Surgery CANCER TUMOR 1998 Extraction of cataract 07/28/15; DR. 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 Status post appendectomy 1966 Family History Mother , 77 Heart disease [place] Hyperlipidemia Cancer Depression Father , 60 Heart disease [place] Hyperlipidemia Alcohol use disorder Grandmother Heart disease [place] Brother , 29 Depression Social History (Updated 03/09/23 @ 11:25 by Melly Brooks) Smoking/Tobacco Use Status: Former Tobacco Use tobacco type: cigarettes Quit Date: 06/30/81 Tobacco: How many years used: 20 Second Hand Exposure: Yes Smoking risk assessment performed?: Yes Alcohol Intake: former Drug use: Never Substance use type: does not use Caregiver/Support person: No Household members: spouse Housing: house Communication Needs: Hard of Hearing and Corrective Lenses Do you need help understanding health information?: Rarely Pets and animals: Yes Pets and animals: dog(s) Current gender identity: female What is your relationship status?: How often do you talk on the phone with friends or family?: never How often do you get together with friends or relatives?: decline to answer How often do you attend anglican or congregational services?: 1-3 times per year Do you belong to any clubs or organized social groups?: no Panel score (0-1 are the most socially isolated patients): 1 What type of physical activity do you participate in: none Frequency: does not exercise Marlene/Adventist: None Special marlene needs: No Seatbelt use: never Helmet use: No Drive intox or ride w/intox 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: No Do you feel safe at home: Yes Do you feel safe in your relationship?: Yes Course Vital Signs Vital signs: Vital Signs Temperature 36.7 C 08/25/23 10:22 Pulse 73 08/25/23 10:22 Respiratory Rate 18 08/25/23 10:22 Blood Pressure 163/70 H 08/25/23 10:22 Pulse Oximetry 98 08/25/23 10:22 Temperature 36.7 C 08/25/23 10:22 Pulse 73 08/25/23 10:22 Respiratory Rate 18 08/25/23 10:22 Respiratory Effort Normal, Non-Labored 08/25/23 10:36 Blood Pressure 163/70 H 08/25/23 10:22 Blood Pressure Position Sitting 08/25/23 10:22 Pulse Oximetry 98 08/25/23 10:22 Oxygen Delivery Method Room Air 08/25/23 10:22 Oxygen Flow Rate 0 08/25/23 10:22 Pain Level 0 08/25/23 10:22
[2023-08-25] MEDS: Amoxicillin 875/Clav. 125 TAB PO (11:01)
--- NOTE | 2023-08-25 11:07 | DI.VRAD_ITS ---
PROCEDURE INFORMATION: Exam: XR Left Shoulder Exam date and time: 08/25/2023 10:41 AM Age: 78 years old Clinical indication: Injury or trauma; Fall; Blunt trauma (contusions or hematomas); Shoulder; Left TECHNIQUE: Imaging protocol: Radiologic exam of the left shoulder. Views: 2 or more views. COMPARISON: No relevant prior studies available. FINDINGS: Bones/joints: Degenerative changes in the acromioclavicular joint and glenohumeral joint. There is no evidence of acute fracture.There is no evidence of malalignment or dislocation. Soft tissues: Normal. IMPRESSION: There is no evidence of acute fracture.There is no evidence of malalignment or dislocation. Dictated and Authenticated by: Martha Neves MD. Ordering:LAITH Suresh MD
[2023-08-25 11:17] VITALS: BP 163/70; PULSE 73; RESP 18; O2SAT 98
== END 2023-08-25 11:18 | disposition home or self-care (01) ==
PROVIDERS: Emergency Provider Emergency Medicine; PCP Nurse Practitioner Family
DX: M25.512 Pain in left shoulder (principal); H66.92 Otitis media, unspecified, left ear; Z87.891 Personal history of nicotine dependence; Z79.84 Long term (current) use of oral hypoglycemic drugs; E11.42 Type 2 diabetes mellitus with diabetic polyneuropathy; E78.5 Hyperlipidemia, unspecified
CPT/HCPCS: 99283; 73030

== ENCOUNTER 2024-02-05 08:20 | Outpatient (CLI) | payer MEDICARE, SELFPAY ==
[2024-02-05 09:06] LABS: Abs Immature Grans 0.03 10^3/uL (0.0-0.06); Absolute Basophil Count 0.04 10^3/uL (0.0-0.2); Absolute Eosinophil Count 0.06 10^3/uL (0.0-0.7); Absolute Monocyte Count 0.53 10^3/uL (0.1-0.8); Absolute Neutrophil Count 5.86 10^3/uL (1.2-6.7); Basophils % 0.5 %; Eosinophils % 0.7 %; HCT 39.8 % (36.0-46.0); HGB 12.9 g/dL (11.2-15.7); Immature Grans % 0.4 %; Lymphocytes % 18.7 %; MCH 26.5 pg (27.0-33.0); MCHC 32.4 % (32.0-36.0); MCV 82 fL (80-95); MPV 9.7 fL (8.0-11.0); Monocytes % 6.6 %; Neutrophils % 73.1 %; Platelet Count 340 10^3/uL (130-400); RBC 4.86 10^6/uL (3.93-5.22); RDW-SD 41.7 fL; WBC 8.02 10^3/uL (4.4-10.8)
[2024-02-05 09:42] LABS: Vitamin D 25 Total 26.9 ng/mL (30-100)
[2024-02-05 10:23] LABS: ALT 18 U/L (14-59); AST 15 U/L (15-37); Albumin 3.5 g/dL (3.4-5.0); Alkaline Phosphatase 116 U/L (46-116); Anion Gap 6.3 mmol/L (3-11); BUN 14 mg/dL (7-18); Bilirubin, Total 0.4 mg/dL (0.2-1.0); CO2 31.7 mmol/L (21.0-32.0); CREATININE 1.1 mg/dL (0.55-1.02); Calcium 10.8 mg/dL (8.5-10.1); Calculated LDL 82 mg/dL (<100); Chloride 104 mmol/L (98-107); Cholesterol 164 mg/dL (<200); Estimated GFR 51.75 (mL/min/1.73m2); Glucose 119 mg/dL (74-106); HDL Cholesterol 63 mg/dL (40-60); Potassium 3.7 mmol/L (3.5-5.1); Sodium 142 mmol/L (136-145); TSH (W/Ref FT4) 1.65 uIU/mL (0.36-3.74); Total Protein 7.4 g/dL (6.4-8.2); Triglyceride 99 mg/dL (<150); Vitamin B12 1238 pg/mL (193-986)
== END 2024-02-05 08:21 | disposition home or self-care (01) ==
LOC: LBO 08:21
PROVIDERS: PCP Nurse Practitioner Family; Referring Provider Nurse Practitioner Family; Visit Provider Nurse Practitioner Family
DX: E78.5 Hyperlipidemia, unspecified (principal); E55.9 Vitamin D deficiency, unspecified
CPT/HCPCS: 36415; 80053; 80061; 82306; 82607; 84443; 85025

== ENCOUNTER 2024-04-12 16:15 | Emergency (ER) | payer MEDICARE, SELFPAY ==
[2024-04-12 16:18] VITALS: BP 157/72; PULSE 77; RESP 16; TEMP 35.8; O2SAT 98
--- NOTE | 2024-04-12 16:30 | DI.CT_ITS ---
Exam(s) CT ABDOMEN PELVIS W EXAM: CT ABDOMEN PELVIS W CLINICAL HISTORY: right upper abdominal pain. TECHNIQUE: Imaging Protocol: Axial computed tomography images with coronal and sagittal reformatted images were created and reviewed CONTRAST MATERIAL: Intravenous: Omnipaque-350 100cc Oral: None COMPARISON: No exams were available for comparison FINDINGS: VISUALIZED LUNG BASES: There are noncalcified subpleural nodules in both lung bases which measure up to 8 mm size. No pleural effusions.. ABDOMEN: There is no ascites. LIVER: There are no focal hepatic lesions evident. No dilated intrahepatic ducts. GALLBLADDER/BILIARY: Small gallstones polyps are noted on the dependent wall the gallbladder. Gallbl adder is not edematous. CBD is not dilated. PANCREAS: No evidence of pancreatic mass nor dilatation of the pancreatic duct. SPLEEN: Spleen is not enlarged. No obvious intrasplenic lesions. Splenic and portal veins are paten t. ADRENALS: There are no significant adrenal masses. KIDNEYS:No cysts evident. No solid renal masses. No calculi nor hydronephrosis.. ABDOMINAL AORTA: Abdominal aorta is calcified but not enlarged. Iliac arteries also calcified but no t enlarged. LYMPH NODES:There is no retroperitoneal nor paraaortic adenopathy. ABDOMINAL WALL: No evidence of significant anterior abdominal wall nor inguinal hernia. GI: There is no evidence of bowel obstruction, free air, nor abscess. There are diverticuli in the transverse colon, descending-left colon, and sigmoid colon. No evidence of obvious diverticulitis. PELVIS: GI: Appendix is not seen and possibly surgically absent.No evidence of sigmoid diverticulitis. LYMPH NODES: There is no intrapelvic nor inguinal adenopathy. REPRODUCTIVE: Uterus surgically absent. No adnexal masses. No free fluid. URINARY BLADDER: No calculi nor obvious masses evident OSSEOUS: No fractures and no significant osseous lesions. IMPRESSION: 1. Cholelithiasis. No obvious gallbladder wall edema nor dilatation of biliary tree. 2. Diverticulosis of the transverse colon, descending colon, and sigmoid colon but without evidence o f acute diverticulitis. Appendix not identified and may be surgically absent. There is no evidence of acute appendicitis. 3. Uterus is surgically absent. 4. No evidence of bowel obstruction, free air, nor abscess. 5. There are noncalcified subpleural nodules in both visualized lung bases measuring up to 8 mm size . Recommend follow-up chest CT scan. RADIATION DOSE DELIVERED: 1,217.17mGy.cm Total DLP DATA REPOSITORY: All CT scans at this facility are submitted to the National Radiology Data Registry (NRDR) Dose Index Registry (DIR) with the [employer] (ACR). RADIATION OPTIMIZATION: All CT scans at this facility use at least one of these dose optimization te chniques: automated exposure control; mA and/or kV adjustment per patient size (includes targeted exa ms where dose is matched to clinical indication); or iterative reconstruction.
--- NOTE | 2024-04-12 16:43 | W.ED.GENAD ---
Discharge Plan Disposition Patient Disposition: Home Condition: Stable Discharge Details Clinical Impression: Abdominal pain, Gallstone Primary Care Provider: Breanna Lomeli ED Provider: Clayton Dale Home Meds and New Rx's Prescriptions: Continued acetaminophen 500 mg capsule 500 mg PO Q6H PRN beet root 500 mg PO DAILY metformin 500 mg tablet 500 mg PO DAILY Qty: 90 3RF mirabegron 50 mg tablet extended release 24 hr 50 mg PO Q24H Qty: 90 3RF furosemide 20 mg tablet 20 mg PO QAM Qty: 90 3RF losartan-hydrochlorothiazide 100-12.5 mg tablet 1 tab PO DAILY Qty: 90 3RF lovastatin 40 mg tablet 40 mg PO DAILY Qty: 90 3RF omeprazole 20 mg capsule,delayed release(DR/EC) 20 mg PO BID Qty: 180 3RF paroxetine HCl [Paxil] 30 mg tablet 30 mg PO DAILY Qty: 90 3RF amitriptyline 25 mg tablet 25 mg PO QHS Qty: 90 3RF omega-3 fatty acids-fish oil 300-1,000 mg capsule 2 cap PO DAILY Qty: 180 3RF multivitamin 1 EACH capsule 1 cap PO DAILY lidocaine 5 % adhesive patch,medicated 2 patch topical DAILY Qty: 30 0RF Rx Instructions: leave on most painful area for up to 12 hrs Discharge Instructions Additional Instructions: Your blood work and CAT scan did not show any concerning findings. You do have a small gallstone which could be the cause of your symptoms I placed you on a follow-up list to see general surgery as an outpatient Follow-up with your primary care provider as well If you feel more ill or have new symptoms such as persistent vomiting or high fevers return to the emergency department for reevaluation Referrals: Fabio Craven MD [ [facility] STAFF PHYSICIAN] - [facility] General Mode of arrival: ambulatory. Date/Time Provider Initiated Documentation: 04/12/24 16:18. Limitations to Documentation: no limitations. Information obtained by: patient. History of Present Illness 78 year old F presents to the emergency department with the chief complaint of abdominal pain, described as moderate, Quality is described as sharp, and is localized to the abdomen. Patient reports no radiation. Patient started experiencing this month(s) (1) No relieving factors improve symptom(s), No exacerbating factors reported . Patient notes no other symptoms.. Related Data Home Medications ?Medication ?Instructions ?Recorded ?Confirmed multivitamin 1 cap PO DAILY 11/30/12 03/08/23 acetaminophen 500 mg capsule 500 mg PO Q6H PRN 05/02/20 08/25/23 beet root 500 mg PO DAILY 03/08/23 08/25/23 metformin 500 mg tablet 500 mg PO DAILY #90 tab-caps 03/08/23 08/25/23 mirabegron 50 mg tablet,extended 50 mg PO Q24H #90 tabs 04/22/23 08/25/23 release 24 hr lidocaine 5 % topical patch 2 patch topical DAILY #30 ea 06/05/23 08/25/23 furosemide 20 mg tablet 20 mg PO QAM #90 tabs 08/23/23 08/25/23 losartan 100 1 tab PO DAILY #90 tabs 08/23/23 08/25/23 mg-hydrochlorothiazide 12.5 mg tablet lovastatin 40 mg tablet 40 mg PO DAILY #90 tabs 09/09/23 omeprazole 20 mg capsule,delayed 20 mg PO BID #180 caps 10/02/23 release paroxetine HCl 30 mg tablet (Paxil) 30 mg PO DAILY #90 tabs 10/09/23 amitriptyline 25 mg tablet 25 mg PO QHS #90 tabs 11/29/23 omega-3 fatty acids-fish oil 300 2 cap PO DAILY #180 caps 03/30/24 mg-1,000 mg capsule Previous Rx's ?Medication ?Instructions ?Recorded metformin 500 mg tablet 500 mg PO DAILY #90 tab-caps 03/08/23 mirabegron 50 mg tablet,extended 50 mg PO Q24H #90 tabs 04/22/23 release 24 hr lidocaine 5 % topical patch 2 patch topical DAILY #30 ea 06/05/23 furosemide 20 mg tablet 20 mg PO QAM #90 tabs 08/23/23 losartan 100 1 tab PO DAILY #90 tabs 08/23/23 mg-hydrochlorothiazide 12.5 mg tablet lovastatin 40 mg tablet 40 mg PO DAILY #90 tabs 09/09/23 omeprazole 20 mg capsule,delayed 20 mg PO BID #180 caps 10/02/23 release paroxetine HCl 30 mg tablet (Paxil) 30 mg PO DAILY #90 tabs 10/09/23 amitriptyline 25 mg tablet 25 mg PO QHS #90 tabs 11/29/23 omega-3 fatty acids-fish oil 300 2 cap PO DAILY #180 caps 03/30/24 mg-1,000 mg capsule Allergies Allergy/AdvReac Type Severity Reaction Status Date / Time famotidine Allergy Severe mouth Verified 03/08/23 13:36 blisters latex Allergy Intermediate burning Verified 03/08/23 13:36 adhesive Allergy Mild RASH Verified 03/08/23 13:36 mercury (elemental) Allergy Unknown Verified 03/08/23 13:36 tolterodine tartrate (From Allergy Unknown Verified 03/08/23 13:36 Detrol) lisinopril AdvReac Unknown Verified 03/08/23 13:36 nylon AdvReac Mild Skin Uncoded 03/08/23 13:36 Irritation soaps AdvReac Mild skin Uncoded 03/08/23 13:36 irritation General Stated Complaint: Abd Prob ASA: 3 Review of Systems All systems reviewed & are unremarkable except as noted in HPI and below Constitutional Constitutional: Denies chills, Denies fever(s) and Denies weakness Cardiovascular Cardiovascular: Denies chest pain and Denies dyspnea Respiratory Respiratory: Denies cough and Denies dyspnea Gastrointestinal Gastrointestinal: Reports abdominal pain, Denies nausea and Denies vomiting Musculoskeletal Musculoskeletal: Denies joint swelling Neurologic Neurologic: Denies weakness Exam Const General: no acute distress Orientation: alert HENSD Head: normal to inspection Ears: external ears normal General nose exam: external nose normal Mouth: moist mucous membranes Eyes General: appearance normal, both eyes and all related structures Neck Neck: normal visual inspection Resp Effort & Inspection: normal respiratory effort and able to speak in complete sentences Auscultation: clear to auscultation bilaterally Cardio Rate: regular rate Heart Sounds: no murmurs GI Palpation: soft and tender Skin General skin exam: no rashes or lesions noted Neuro General: patient alert and patient oriented x3 Extrem General: normal to inspection Psych Mental Status: mental status grossly normal Course Vital Signs Vital signs: Vital Signs Temperature 35.8 C L 04/12/24 16:18 Pulse 77 04/12/24 16:18 Respiratory Rate 16 04/12/24 16:18 Blood Pressure 157/72 H 04/12/24 16:18 Pulse Oximetry 98 04/12/24 16:18 Temperature 35.8 C L 04/12/24 16:18 Temperature Source Tympanic 04/12/24 16:18 Pulse 77 04/12/24 16:18 Respiratory Rate 16 04/12/24 16:18 Blood Pressure 157/72 H 04/12/24 16:18 Blood Pressure Position Sitting 04/12/24 16:18 Pulse Oximetry 98 04/12/24 16:18 Oxygen Delivery Method Room Air 04/12/24 16:18 Oxygen Flow Rate 0 04/12/24 16:18 Pain Level 2 04/12/24 16:18 Medical Decision Making 78-year-old female with a history of Crohn's, depression, diabetes, has had a prior hysterectomy and appendectomy comes in with 1 month of intermittent right upper quadrant abdominal pain. Denies any vomiting, fevers, chest pain, difficulty breathing. She cannot think of anything that makes the pain better or worse. She says that sharp, she is in no distress on exam, her abdomen is soft but she has localized tenderness of the right upper quadrant with no overlying rashes, with no guarding or rebound. Unclear etiology for her symptoms but given her age we will proceed with CBC, CMP, lipase and also CT abdomen pelvis to evaluate for surgical pathology. Labs without significant findings, CT shows also no significant findings does have some gallstones which I feel they are colic is most likely cause of her symptoms. Will provide a referral to see general surgery as an outpatient. She is stable ambulatory without any pain. Will discharge her return precautions given Differential Diagnosis Differential Diagnosis: Gastritis, cholecystitis, pancreatitis Medical Records Medical records reviewed: Yes I reviewed the patient's medical records. Imaging Data Radiologic Study: Attestation: I personally reviewed and interpreted this imaging study as follows: Imaging: CT Scan Radiologist's impression: IMPRESSION: 1. No acute bowel pathology demonstrated. Gallbladder partially decompressed. Small incompletely calcified gallstones and/or gallbladder sludge. No biliary dilatation. 2. Pulmonary nodules, as above. Direct comparison with prior imaging recommended versus followup as per institution protocol. Lab Data Lab results reviewed: Yes I reviewed the patient's lab results. Quality:SDOH Health Related Social Needs: No Data to Display PFSH All Active Problems (Updated 04/12/24 @ 19:15 by Clayton Dale MD) Gallstone (Acute) Abdominal pain (Acute) Essential hypertension (Chronic) GERD (gastroesophageal reflux disease) (Chronic 12/05/15) Generalized weakness (Acute) Falls frequently (Acute) Insomnia (Acute) Referred otalgia of left ear (Acute) MONIQUE treated with BiPAP (Acute) Overactive bladder (Acute 01/12/15) Xerostomia (Acute) Pedal edema (Acute) Sore throat (Acute) Swallowing pain or burning (Acute) Type 2 diabetes mellitus without complication, without long-term current use of insulin (Acute 07/08/17) Medical History Allergic rhinitis Benign paroxysmal positional vertigo (03/04/18) Crohn's disease of small intestine without complication (06/15/16) Depressive disorder Diabetes mellitus Ear pain, left Globus sensation (12/05/15) Headache History of tobacco use Hyperlipidemia Mantoux: positive pt. is not aware of this Obesity MONIQUE (obstructive sleep apnea) (12/05/15) Peripheral neuralgia Prediabetes (06/24/17) Seasonal allergies (01/12/15) Sensorineural hearing loss, bilateral (12/05/15) TMJ (temporomandibular joint disorder) (12/05/15) Urge incontinence Vitamin D deficiency (07/08/17) Surgical History Abdominal hysterectomy 1980 ADHESIONS (~1970) Bladder Surgery CANCER TUMOR 1998 Extraction of cataract 07/28/15; DR. 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 Status post appendectomy 1965 Family History Mother , 77 Heart disease [place] Hyperlipidemia Cancer Depression Father , 60 Heart disease [place] Hyperlipidemia Alcohol use disorder Grandmother Heart disease [place] Brother , 29 Depression Social History (Updated 03/09/23 @ 11:25 by Melly Brooks) Smoking/Tobacco Use Status: Former Tobacco Use tobacco type: cigarettes Quit Date: 06/30/81 Tobacco: How many years used: 20 Second Hand Exposure: Yes Smoking risk assessment performed?: Yes Alcohol Intake: former Drug use: Never Substance use type: does not use Caregiver/Support person: No Household members: spouse Housing: house Communication Needs: Hard of Hearing and Corrective Lenses Do you need help understanding health information?: Rarely Pets and animals: Yes Pets and animals: dog(s) Current gender identity: female What is your relationship status?: How often do you talk on the phone with friends or family?: never How often do you get together with friends or relatives?: decline to answer How often do you attend pentecostalism or protestant services?: 1-3 times per year Do you belong to any clubs or organized social groups?: no Panel score (0-1 are the most socially isolated patients): 1 What type of physical activity do you participate in: none Frequency: does not exercise Marlene/Christian: None Special marlene needs: No Seatbelt use: never Helmet use: No Drive intox or ride w/intox milk driver: No Do you feel safe at home: Yes Do you feel safe in your relationship?: Yes
[2024-04-12 17:07] LABS: BE (Venous) 5 mmol/L (-2-3); HCO3 (Venous) 30 mmol/L (23-28); O2 Sat (Venous) 52 %; TCO2 (Venous) 27 mmol/L (24-29); pCO2 (Venous) 49 mmHg (41-51); pO2 (Venous) 29 mmHg
[2024-04-12 17:09] LABS: Abs Immature Grans 0.03 10^3/uL (0.0-0.06); Absolute Basophil Count 0.05 10^3/uL (0.0-0.2); Absolute Eosinophil Count 0.14 10^3/uL (0.0-0.7); Absolute Lymphocyte Count 1.88 10^3/uL (1.2-3.4); Absolute Monocyte Count 0.61 10^3/uL (0.1-0.8); Absolute Neutrophil Count 5.16 10^3/uL (1.2-6.7); Basophils % 0.6 %; Eosinophils % 1.8 %; HCT 43.9 % (36.0-46.0); HGB 14.1 g/dL (11.2-15.7); Immature Grans % 0.4 %; Lymphocytes % 23.9 %; MCHC 32.1 % (32.0-36.0); MCV 84 fL (80-95); MPV 9.4 fL (8.0-11.0); Monocytes % 7.8 %; Neutrophils % 65.5 %; Platelet Count 350 10^3/uL (130-400); RBC 5.22 10^6/uL (3.93-5.22); RDW 14.3 % (11.7-14.6); RDW-SD 43.8 fL; WBC 7.87 10^3/uL (4.4-10.8)
[2024-04-12] MEDS: Ketorolac 15 MG/ML VIAL IVP (17:13)
[2024-04-12 17:32] LABS: ALT 24 U/L (14-59); AST 16 U/L (15-37); Albumin 3.8 g/dL (3.4-5.0); Alkaline Phosphatase 108 U/L (46-116); BUN 20 mg/dL (7-18); Bilirubin, Total 0.29 mg/dL (0.2-1.0); Chloride 102 mmol/L (98-107); Estimated GFR 58.02 (mL/min/1.73m2); Glucose 102 mg/dL (74-106); Lipase 33 U/L (16-77); Magnesium 2.2 mg/dL (1.8-2.4); Potassium 3.3 mmol/L (3.5-5.1); Sodium 142 mmol/L (136-145); TSH (W/Ref FT4) 1.17 uIU/mL (0.36-3.74); Total Protein 8.1 g/dL (6.4-8.2)
[2024-04-12] MEDS: Omnipaque 350 MG/ML 100 ML BTL IJ (17:45)
[2024-04-12] MEDS: Normal Saline - Diluent 50 ML VIAL IJ (17:50)
--- NOTE | 2024-04-12 19:01 | DI.VRAD_ITS ---
PROCEDURE INFORMATION: Exam: CT Abdomen And Pelvis With Contrast Exam date and time: 04/12/2024 5:50 PM Age: 78 years old Clinical indication: Other: Right upper abdominal pain TECHNIQUE: Imaging protocol: Computed tomography of the abdomen and pelvis with contrast. Radiation optimization: All CT scans at this facility use at least one of these dose optimization techniques: automated exposure control; mA and/or kV adjustment per patient size (includes targeted exams where dose is matched to clinical indication); or iterative reconstruction. Contrast material: OMNI 350; Contrast volume: 100 ml; Contrast route: INTRAVENOUS (IV); COMPARISON: No relevant prior studies available. FINDINGS: Lungs: Nodular pulmonary densities measuring 5 mm at the right lung base on image 3, 8 mm at the left lung base on image 7, and 8 mm at the left lung base on image 10 of series 4. Liver: Normal appearing liver. Gallbladder and biliary ducts: Gallbladder partially decompressed. Small gallstones and/or gallbladder sludge. No biliary dilatation. Pancreas: Normal appearing pancreas. Spleen: Normal appearing spleen. Adrenal glands: Normal appearing adrenal glands. Kidneys and ureters: Normal appearing kidneys. No hydronephrosis. No obstructing ureteral stones. Stomach and bowel: No oral contrast. Stomach partially decompressed. No small bowel dilatation to suggest obstruction. Diverticulosis through the descending and sigmoid segments of the colon but no evidence of diverticulitis or colitis. Appendix: Appendix not identified, obscured if present. Correlation with surgical history recommended. Intraperitoneal space: No gross ascites or free air. Vasculature: Normal caliber abdominal aorta. Lymph nodes: No pathologically enlarged mesenteric, retroperitoneal, or pelvic sidewall lymph nodes. Urinary bladder: Normal appearing urinary bladder. Reproductive: Prior hysterectomy. Ovaries not identified, obscured if present. Correlation with surgical history recommended. Bones/joints: No acute fracture seen among the bones of the abdomen or pelvis. Tiny vestigial ribs at L1. Please note that vertebral body numbering is not definitive in the absence of complete spinal visualization. Given this numbering system, partial fusion across the L2-L3 disc space. Spinal degenerative change with discogenic degeneration, anterior osteophytes, and facet arthrosis at multiple levels. Soft tissues: No significant ventral or inguinal hernia. IMPRESSION: 1. No acute bowel pathology demonstrated. Gallbladder partially decompressed. Small incompletely calcified gallstones and/or gallbladder sludge. No biliary dilatation. 2. Pulmonary nodules, as above. Direct comparison with prior imaging recommended versus follow-up as per institution protocol. Dictated and Authenticated by: Bobby Cornell MD. Ordering:IZA Arnold MD
--- NOTE | 2024-04-12 19:16 | NUR.NOTE ---
Addendum entered by Rina Sutton 04/12/24 19:27: Patient given [facility] phone number as she gets no phone service at her home. She will call to make an appointment. Original Note: Referral faxed to [facility] to f/u in 2 weeks for Biliary Colic.Nursing Note:
--- NOTE | 2024-04-15 09:21 | NUR.NOTE ---
Nursing Note: Pt called asking for a copy of her discharge papers from a few days ago. Said that she has an appointment here at 10:00 and would swing by to grab them. Discharge printed and let with access.
--- NOTE | 2024-04-16 09:50 | NUR.NOTE ---
Nursing Note: Accessed chart for SQSS investigation
--- NOTE | 2024-04-19 10:37 | NUR.NOTE ---
Nursing Note: This RN accessed this chart after pt was discharged following email sent attempting to identify who discharged pt.
== END 2024-04-12 19:27 | disposition home or self-care (01) ==
PROVIDERS: Emergency Provider Emergency Medicine; PCP Nurse Practitioner Family
DX: R10.11 Right upper quadrant pain (principal); R91.8 Other nonspecific abnormal finding of lung field; K80.20 Calculus of gallbladder without cholecystitis without obstruction; Z90.49 Acquired absence of other specified parts of digestive tract; E11.9 Type 2 diabetes mellitus without complications; I10 Essential (primary) hypertension; Z79.84 Long term (current) use of oral hypoglycemic drugs; Z87.891 Personal history of nicotine dependence
CPT/HCPCS: 80053; 82805; 83690; 96374; 99285; 74177; 83735; 84443; 85025; 99284; J1885; J3490

== ENCOUNTER 2025-01-22 09:21 | Emergency (ER) | payer MEDICARE, SELFPAY ==
[2025-01-22 09:23] VITALS: BP 124/53; PULSE 68; RESP 16; TEMP 36.3; O2SAT 99
--- NOTE | 2025-01-22 10:18 | DI.RAD_ITS ---
Exam(s) XR SHOULDER LT COMPLETE 2+V EXAM: XR SHOULDER LT COMPLETE 2+V CLINICAL HISTORY: Pain. TECHNIQUE: 2D digital imaging was performed. COMPARISON: X-rays 08/25/2023 FINDINGS: Five views No evidence of fracture or dislocation nor abnormal soft tissue calcifications. There are degenerati ve changes again noted in the glenohumeral joint and appearance of the humeral head may reflect prior healed fracture. There is some diminution of the subacromial space. Osteophytic ridge noted on the undersurface of the a chromium. Degenerative changes in the AC joint. No significant osseous lesio ns. IMPRESSION: Degenerative changes in the glenohumeral and AC joints. Also some diminution of the subacromial spac e. Probable impingement. In addition there is a again noted a 3 millimeter calcific density in the subacromial space above the medial aspect of the humeral head, unchanged from previous. Check rotato r cuff pathology. DATA REPOSITORY: RADIATION DOSE DELIVERED:
--- NOTE | 2025-01-22 10:24 | W.ED.GENAD ---
Discharge Plan Disposition Patient Disposition: Home Condition: Stable Discharge Details Clinical Impression: Chronic left shoulder pain Primary Care Provider: Breanna Lomeli ED Provider: Yulia Quintero Home Meds and New Rx's Prescriptions: New oxycodone 5 mg capsule 5 mg PO Q8H PRN (Reason: pain) Qty: 7 0RF Rx Instructions: Take 1 capsule by mouth every 8 hours as needed for moderate to severe pain. Please take with food and no driving or operating heavy machinery while on this medication. Continued acetaminophen 500 mg capsule 500 mg PO Q6H PRN beet root 500 mg PO DAILY metformin 500 mg tablet 500 mg PO DAILY Qty: 90 3RF mirabegron 50 mg tablet extended release 24 hr 50 mg PO Q24H Qty: 90 3RF furosemide 20 mg tablet 20 mg PO QAM Qty: 90 3RF losartan-hydrochlorothiazide 100-12.5 mg tablet 1 tab PO DAILY Qty: 90 3RF lovastatin 40 mg tablet 40 mg PO DAILY Qty: 90 3RF omeprazole 20 mg capsule,delayed release(DR/EC) 20 mg PO BID Qty: 180 3RF paroxetine HCl [Paxil] 30 mg tablet 30 mg PO DAILY Qty: 90 3RF amitriptyline 25 mg tablet 25 mg PO QHS Qty: 90 3RF omega-3 fatty acids-fish oil 300-1,000 mg capsule 2 cap PO DAILY Qty: 180 3RF multivitamin 1 EACH capsule 1 cap PO DAILY lidocaine 5 % adhesive patch,medicated 2 patch topical DAILY Qty: 30 0RF Rx Instructions: leave on most painful area for up to 12 hrs Discharge Instructions Instructions: Shoulder Pain ED Additional Instructions: At this time there is a concern for possible rotator cuff injury, also have some major degenerative changes. A prescription for oxycodone has been sent to the pharmacy on file. Please take this medication with food no driving or operating heavy machinery while taking this medication. A referral was placed for orthopedics to follow-up within 1 to 2 weeks. They should call you with an appointment if you do not hear from them please give them a call. Continue using the lidocaine patches and [id number] topical diclofenac gel as needed. You may also continue to take Tylenol. Follow up with primary care provider in 3-5 days. Return to ED sooner if any worsening or concerns. Referrals: Mikey Marie MD [ [facility] STAFF PHYSICIAN] - 1 week HPI General Mode of arrival: wheelchair. Date/Time Provider Initiated Documentation: 01/22/25 09:31. Limitations to Documentation: no limitations. Information obtained by: patient, RN notes reviewed and old records reviewed. HPI Narrative: 79-year-old female presents to the ER with chief complaint of chronic left shoulder pain which is been worsening over the last 10 days. Patient has no known recent injury. She does have a long history of degenerative changes in her shoulder. She has broken that shoulder in the past. She has been taking Tylenol and lidocaine patches with little to no relief. She reports having difficulty lifting her arm. Related Data Home Medications ?Medication ?Instructions ?Recorded ?Confirmed multivitamin 1 cap PO DAILY 11/30/12 03/08/23 acetaminophen 500 mg capsule 500 mg PO Q6H PRN 05/02/20 08/25/23 beet root 500 mg PO DAILY 03/08/23 08/25/23 metformin 500 mg tablet 500 mg PO DAILY #90 tab-caps 03/08/23 08/25/23 mirabegron 50 mg tablet,extended 50 mg PO Q24H #90 tabs 04/22/23 08/25/23 release 24 hr lidocaine 5 % topical patch 2 patch topical DAILY #30 ea 06/05/23 08/25/23 furosemide 20 mg tablet 20 mg PO QAM #90 tabs 08/23/23 08/25/23 losartan 100 1 tab PO DAILY #90 tabs 08/23/23 08/25/23 mg-hydrochlorothiazide 12.5 mg tablet lovastatin 40 mg tablet 40 mg PO DAILY #90 tabs 09/09/23 omeprazole 20 mg capsule,delayed 20 mg PO BID #180 caps 10/02/23 release paroxetine HCl 30 mg tablet (Paxil) 30 mg PO DAILY #90 tabs 10/09/23 amitriptyline 25 mg tablet 25 mg PO QHS #90 tabs 11/29/23 omega-3 fatty acids-fish oil 300 2 cap PO DAILY #180 caps 03/30/24 mg-1,000 mg capsule oxycodone 5 mg capsule 5 mg PO Q8H PRN pain #7 caps 01/22/25 Previous Rx's ?Medication ?Instructions ?Recorded metformin 500 mg tablet 500 mg PO DAILY #90 tab-caps 03/08/23 mirabegron 50 mg tablet,extended 50 mg PO Q24H #90 tabs 04/22/23 release 24 hr lidocaine 5 % topical patch 2 patch topical DAILY #30 ea 06/05/23 furosemide 20 mg tablet 20 mg PO QAM #90 tabs 08/23/23 losartan 100 1 tab PO DAILY #90 tabs 08/23/23 mg-hydrochlorothiazide 12.5 mg tablet lovastatin 40 mg tablet 40 mg PO DAILY #90 tabs 09/09/23 omeprazole 20 mg capsule,delayed 20 mg PO BID #180 caps 10/02/23 release paroxetine HCl 30 mg tablet (Paxil) 30 mg PO DAILY #90 tabs 10/09/23 amitriptyline 25 mg tablet 25 mg PO QHS #90 tabs 11/29/23 omega-3 fatty acids-fish oil 300 2 cap PO DAILY #180 caps 03/30/24 mg-1,000 mg capsule oxycodone 5 mg capsule 5 mg PO Q8H PRN pain #7 caps 01/22/25 Allergies Allergy/AdvReac Type Severity Reaction Status Date / Time famotidine Allergy Severe mouth Verified 01/22/25 09:30 blisters latex Allergy Intermediate burning Verified 01/22/25 09:30 adhesive Allergy Mild RASH Verified 01/22/25 09:30 mercury (elemental) Allergy Unknown Other (See Verified 01/22/25 09:30 Comment) tolterodine tartrate (From Allergy Unknown Other (See Verified 01/22/25 09:30 Detrol) Comment) lisinopril AdvReac Unknown Other (See Verified 01/22/25 09:30 Comment) nylon AdvReac Mild Skin Uncoded 01/22/25 09:30 Irritation soaps AdvReac Mild skin Uncoded 01/22/25 09:30 irritation General Stated Complaint: Orthopedic ASA: 4 Review of Systems Musculoskeletal Musculoskeletal: Reports as per HPI and Reports arthralgias Exam Const General: cooperative, comfortable, well developed and well groomed Nutritional Appearance: obese Orientation: alert, awake and oriented x3 Neck Neck: normal visual inspection and full ROM Resp Effort & Inspection: normal respiratory effort and able to speak in complete sentences Auscultation: clear to auscultation bilaterally Back/Spine/Pelvis Cervical Spine: normal cervical lordosis Extrem Left upper extremity: normal capillary refill, no joint enlargement and shoulder/upper arm Details: inspection abnormal; no edema Course Vital Signs Vital signs: Vital Signs Temperature 36.3 C L 01/22/25 09:23 Pulse 68 01/22/25 09:23 Respiratory Rate 16 01/22/25 09:23 Blood Pressure 124/53 L 01/22/25 09:23 Pulse Oximetry 99 01/22/25 09:23 Temperature 36.3 C L 01/22/25 09:23 Temperature Source Tympanic 01/22/25 09:23 Pulse 68 01/22/25 09:23 Respiratory Rate 16 01/22/25 09:23 Blood Pressure 124/53 L 01/22/25 09:23 Pulse Oximetry 99 01/22/25 09:23 Medical Decision Making 79-year-old female presents to the ER with chief complaint of chronic left shoulder pain which is been worsening over the last 10 days. Patient has no known recent injury. She does have a long history of degenerative changes in her shoulder. She has broken that shoulder in the past. She has been taking Tylenol and lidocaine patches with little to no relief. She reports having difficulty lifting her arm. Shoulder x-ray results are noted below. There is some degenerative changes and CALCIFIC density, I am concerned for rotator cuff. Will give a referral for orthopedics to follow-up within the next 1 to 2 weeks. Patient given 5 mg oxycodone here in the department. Prescription was written. Patient discharged to home with referral for orthopedics. This text was generated using [employer] dictation system, please disregard any oddities of phrase or misspellings. Medical Records Medical records reviewed: Yes I reviewed the patient's medical records. Imaging Data Radiologic Study: Imaging: X-Ray Radiologist's impression: XR SHOULDER LT COMPLETE 2+V EXAM: XR SHOULDER LT COMPLETE 2+V CLINICAL HISTORY: Pain. TECHNIQUE: 2D digital imaging was performed. COMPARISON: X-rays 08/25/2023 FINDINGS: Five views No evidence of fracture or dislocation nor abnormal soft tissue calcifications. There are degenerative changes again noted in the glenohumeral joint and appearance of the humeral head may reflect prior healed fracture. There is some diminution of the subacromial space. Osteophytic ridge noted on the undersurface of the a chromium. Degenerative changes in the AC joint. No significant osseous lesions. IMPRESSION: Degenerative changes in the glenohumeral and AC joints. Also some diminution of the subacromial space. Probable impingement. In addition there is a again noted a 3 millimeter calcific density in the subacromial space above the medial aspect of the humeral head, unchanged from previous. Check rotator cuff pathology. Quality:SDOH Health Related Social Needs: No Data to Display PFSH All Active Problems (Updated 01/22/25 @ 10:38 by Yulia Quintero NP) Chronic left shoulder pain (Acute) Essential hypertension (Chronic) GERD (gastroesophageal reflux disease) (Chronic 12/05/15) Generalized weakness (Acute) Falls frequently (Acute) Insomnia (Acute) Referred otalgia of left ear (Acute) MONIQUE treated with BiPAP (Acute) Overactive bladder (Acute 01/12/15) Xerostomia (Acute) Pedal edema (Acute) Sore throat (Acute) Swallowing pain or burning (Acute) Type 2 diabetes mellitus without complication, without long-term current use of insulin (Acute 07/08/17) Medical History Ear pain, left Urge incontinence Benign paroxysmal positional vertigo (03/04/18) Crohn's disease of small intestine without complication (06/15/16) 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 LOPEZ; RIGHT EYE Bladder Surgery CANCER TUMOR 1999 ADHESIONS (~1970) Family History Mother , 77 Heart disease OR Hyperlipidemia Cancer Depression Father , 60 Heart disease OR Hyperlipidemia Alcohol use disorder Grandmother Heart disease OR Brother , 29 Depression Social History Smoking/Tobacco Use Status: Former Tobacco Use tobacco type: cigarettes Quit Date: 06/30/81 Tobacco: How many years used: 20 Second Hand Exposure: Yes Smoking risk assessment performed?: Yes Alcohol Intake: former Drug use: Never Substance use type: does not use Caregiver/Support person: No Household members: spouse Housing: house Communication Needs: Hard of Hearing and Corrective Lenses Do you need help understanding health information?: Rarely Pets and animals: Yes Pets and animals: dog(s) Current gender identity: female What is your relationship status?: How often do you talk on the phone with friends or family?: never How often do you get together with friends or relatives?: decline to answer How often do you attend episcopalian or sabianist services?: 1-3 times per year Do you belong to any clubs or organized social groups?: no Panel score (0-1 are the most socially isolated patients): 1 What type of physical activity do you participate in: none Frequency: does not exercise Marlene/Evangelical: None Special marlene needs: No Seatbelt use: never Helmet use: No Drive intox or ride w/intox entry level truck driver: No Do you feel safe at home: Yes Do you feel safe in your relationship?: Yes
[2025-01-22] MEDS: oxyCODONE 5 MG TAB PO (11:11)
== END 2025-01-22 23:11 | disposition home or self-care (01) ==
PROVIDERS: Emergency Provider Registered Nurse Emergency; PCP Nurse Practitioner Family
DX: M25.512 Pain in left shoulder (principal); G89.29 Other chronic pain
CPT/HCPCS: 99284; 99283; 73030

== ENCOUNTER 2025-01-31 12:01 | Emergency (ER) | payer MEDICARE, SELFPAY ==
[2025-01-31 12:39] VITALS: BP 148/80; PULSE 112; RESP 16; TEMP 37.1; O2SAT 98
--- NOTE | 2025-01-31 13:00 | DI.RAD_ITS ---
Exam(s) XR CERVICAL SP RICCI TRAUMA 2-3V EXAM: XR CERVICAL SP RICCI TRAUMA 2-3V CLINICAL HISTORY: Neck pain. TECHNIQUE: 2D digital imaging was performed. Three views. COMPARISON: No exams were available for comparison FINDINGS: BONES: No fracture or destructive lesion. Vertebral bodies are unremarkable. DISKS: C2-3 and C3-4 4 disc spaces are maintained. There are small endplate osteophytes at C4-5. Th ere is marked disc space narrowing prominent osteophytes at C5-6 and C6-7. Facet degenerative change s are noted throughout. ALIGNMENT: Straightening of the normal cervical lordosis secondary to advanced degenerative changes. The odontoid and atlantoaxial articulations are normal. SOFT TISSUE: No soft tissue swelling. Bilateral calcifications projecting the regions of the common carotid bulbs. The lung apices are clear. IMPRESSION: Advanced degenerative changes. No visible acute abnormality. DATA REPOSITORY: RADIATION DOSE DELIVERED:
--- NOTE | 2025-01-31 13:04 | ED.GENADUL_ITS ---
Discharge Plan Disposition Patient Disposition: Home Condition: Stable Discharge Details Clinical Impression: Chronic left shoulder pain, Osteoarthritis of cervical spine determined by x- ray, Degenerative cervical disc Primary Care Provider: Breanna Lomeli ED Provider: Yulia Quintero Home Meds and New Rx's Prescriptions: New diclofenac sodium 3 % gel 1 applic topical BID PRN (Reason: pain (scale score 1-3)) Qty: 100 0RF Rx Instructions: Apply to affected area twice daily as needed for pain oxycodone 5 mg capsule 5 mg PO Q12H PRN (Reason: pain) Qty: 6 0RF Rx Instructions: Take 1 capsule by mouth every 12 hours as needed for moderate to severe pain. Please take with food and no driving or operating heavy machinery while on this medication. cyclobenzaprine 10 mg tablet 10 mg PO TID PRN (Reason: muscle spasm) Qty: 10 0RF Rx Instructions: Take 1 tablet orally up to 3 times daily as needed for muscle spasm. No Action acetaminophen 500 mg capsule 500 mg PO Q6H PRN beet root 500 mg PO DAILY metformin 500 mg tablet 500 mg PO DAILY Qty: 90 3RF mirabegron 50 mg tablet extended release 24 hr 50 mg PO Q24H Qty: 90 3RF furosemide 20 mg tablet 20 mg PO QAM Qty: 90 3RF losartan-hydrochlorothiazide 100-12.5 mg tablet 1 tab PO DAILY Qty: 90 3RF lovastatin 40 mg tablet 40 mg PO DAILY Qty: 90 3RF omeprazole 20 mg capsule,delayed release(DR/EC) 20 mg PO BID Qty: 180 3RF paroxetine HCl [Paxil] 30 mg tablet 30 mg PO DAILY Qty: 90 3RF amitriptyline 25 mg tablet 25 mg PO QHS Qty: 90 3RF omega-3 fatty acids-fish oil 300-1,000 mg capsule 2 cap PO DAILY Qty: 180 3RF multivitamin 1 EACH capsule 1 cap PO DAILY lidocaine 5 % adhesive patch,medicated 2 patch topical DAILY Qty: 30 0RF Rx Instructions: leave on most painful area for up to 12 hrs oxycodone 5 mg capsule 5 mg PO Q8H PRN (Reason: pain) Qty: 7 0RF Rx Instructions: Take 1 capsule by mouth every 8 hours as needed for moderate to severe pain. Please take with food and no driving or operating heavy machinery while on this medication. Mounjaro 2.5 mg/0.5 mL pen injector 5 mg SUBCUT .1 x weekly PRN Patient Comments: INJECT 2.5MG UNDER THE SKIN ONCE WEEKLY oxycodone 5 mg tablet 5 mg PO DAILY PRN Patient Comments: TAKE ONE TABLET BY MOUTH EVERY DAY FOR 7 DAYS NEEDED Discharge Instructions Instructions: Chronic pain, Neck Stretches, Shoulder Pain ED Additional Instructions: Please keep your appointment with orthopedics on the with Dr. Marie. Neck x-rays show some degeneration of C5, which is inflammation and arthritis. I also suspect muscle spasms. Generally opioids are not recommended for this type of pain. However, I will give you a few more tablets, but you should follow up with your PCP in the future for further pain management. Alternate ice and heat. Continue with icy hot, lidocaine patches and Diclofenac topical cream. Referrals: Mikey Marie MD [ [facility] STAFF PHYSICIAN] - 1 week HPI General Mode of arrival: ambulatory . Date/Time Provider Initiated Documentation: 01/31/25 12:02 . Limitations to Documentation: no limitations . Information obtained by: patient, RN notes reviewed and old records reviewed . HPI Narrative: 79-year-old female presents to the ER with chronic left shoulder pain also radiation up into her neck. She was seen approximately a week ago by me in the emergency department had x-rays which showed possible impingement syndrome and rotator cuff etiology. She reports known new falls or injuries. She just reports some continued pain with little relief from the pain relief modalities at home. She has been using IcyHot, oxycodone 5 mg which was prescribed by her primary care provider once a day, she last got this filled on the , and lidocaine patches. She denies any chest pain shortness of breath or any other associated symptoms. Related Data Home Medications ?Medication ?Instructions ?Recorded ?Confirmed multivitamin 1 cap PO DAILY 11/30/12 01/31/25 acetaminophen 500 mg capsule 500 mg PO Q6H PRN 05/02/20 01/31/25 beet root 500 mg PO DAILY 03/08/23 01/31/25 metformin 500 mg tablet 500 mg PO DAILY #90 tab-caps 03/08/23 01/31/25 mirabegron 50 mg tablet,extended 50 mg PO Q24H #90 tabs 04/22/23 01/31/25 release 24 hr lidocaine 5 % topical patch 2 patch topical DAILY #30 ea 06/05/23 01/31/25 furosemide 20 mg tablet 20 mg PO QAM #90 tabs 08/23/23 01/31/25 losartan 100 1 tab PO DAILY #90 tabs 08/23/23 01/31/25 mg-hydrochlorothiazide 12.5 mg tablet lovastatin 40 mg tablet 40 mg PO DAILY #90 tabs 09/09/23 01/31/25 omeprazole 20 mg capsule,delayed 20 mg PO BID #180 caps 10/02/23 01/31/25 release paroxetine HCl 30 mg tablet (Paxil) 30 mg PO DAILY #90 tabs 10/09/23 01/31/25 amitriptyline 25 mg tablet 25 mg PO QHS #90 tabs 11/29/23 01/31/25 omega-3 fatty acids-fish oil 300 2 cap PO DAILY #180 caps 03/30/24 01/31/25 mg-1,000 mg capsule oxycodone 5 mg capsule 5 mg PO Q8H PRN pain #7 caps 01/22/25 01/31/25 cyclobenzaprine 10 mg tablet 10 mg PO TID PRN muscle spasm #10 01/31/25 tabs diclofenac sodium 3 % topical gel 1 applic topical BID PRN pain 01/31/25 (scale score 1-3) #100 grams oxycodone 5 mg capsule 5 mg PO Q12H PRN pain #6 caps 01/31/25 oxycodone 5 mg tablet 5 mg PO DAILY PRN 01/31/25 01/31/25 tirzepatide 2.5 mg/0.5 mL 5 mg subcut .1 x weekly PRN 01/31/25 01/31/25 subcutaneous pen injector (Brandon) Previous Rx's ?Medication ?Instructions ?Recorded metformin 500 mg tablet 500 mg PO DAILY #90 tab-caps 03/08/23 mirabegron 50 mg tablet,extended 50 mg PO Q24H #90 tabs 04/22/23 release 24 hr lidocaine 5 % topical patch 2 patch topical DAILY #30 ea 06/05/23 furosemide 20 mg tablet 20 mg PO QAM #90 tabs 08/23/23 losartan 100 1 tab PO DAILY #90 tabs 08/23/23 mg-hydrochlorothiazide 12.5 mg tablet lovastatin 40 mg tablet 40 mg PO DAILY #90 tabs 09/09/23 omeprazole 20 mg capsule,delayed 20 mg PO BID #180 caps 10/02/23 release paroxetine HCl 30 mg tablet (Paxil) 30 mg PO DAILY #90 tabs 10/09/23 amitriptyline 25 mg tablet 25 mg PO QHS #90 tabs 11/29/23 omega-3 fatty acids-fish oil 300 2 cap PO DAILY #180 caps 03/30/24 mg-1,000 mg capsule oxycodone 5 mg capsule 5 mg PO Q8H PRN pain #7 caps 01/22/25 cyclobenzaprine 10 mg tablet 10 mg PO TID PRN muscle spasm #10 01/31/25 tabs diclofenac sodium 3 % topical gel 1 applic topical BID PRN pain 01/31/25 (scale score 1-3) #100 grams oxycodone 5 mg capsule 5 mg PO Q12H PRN pain #6 caps 01/31/25 Allergies Allergy/AdvReac Type Severity Reaction Status Date / Time famotidine Allergy Severe mouth Verified 01/31/25 12:49 blisters latex Allergy Intermediate burning Verified 01/31/25 12:49 adhesive Allergy Mild RASH Verified 01/31/25 12:49 mercury (elemental) Allergy Unknown Other (See Verified 01/31/25 12:49 Comment) tolterodine tartrate (From Allergy Unknown Other (See Verified 01/31/25 12:49 Detrol) Comment) lisinopril AdvReac Unknown Other (See Verified 01/31/25 12:49 Comment) nylon AdvReac Mild Skin Uncoded 01/22/25 09:30 Irritation soaps AdvReac Mild skin Uncoded 01/31/25 12:49 irritation General Stated Complaint: Nk/Back Pain ASA: 4 Review of Systems All systems reviewed & are unremarkable except as noted in HPI and below ENT Ears, Nose, Mouth, and Throat: Reports neck pain Musculoskeletal Musculoskeletal: Reports as per HPI, Reports arthralgias and Reports neck pain Exam Narrative Exam Narrative: Constitutional: Alert and oriented x3. Appears stated age. Normal body habitus. Head: Normocephalic, no trauma. Eyes: Pupils PERRL, Red reflex noted, EOM's intact. Eyelids symmetrical without lesions, discharge, or swelling. ENT: Bilateral TM's WNL, External ear normal to inspection, no mastoid TTP, swelling, or erythema, Nasal turbinates WNL, no nasal discharge. Normal dentition, Posterior pharynx WNL, no exudate. Chest: RRR, Normal S1, S2, distal pulses intact. Resp: Lungs clear to auscultation bilaterally, no wheezes, rales, or rhonchi. Abdomen: Soft, non-distended, Normoactive bowel sounds all 4 quads. Musculoskeletal: Normal gait, Moves all 4 extremities without difficulty. Skin: No suspicious rashes or lesions. Capillary refill less than 2 sec. Neurologic: Cranial nerves II-XII intact. Alert and oriented x 3. Motor: No deficits noted. Sensory: Intact bilaterally all 4 extremities. Hematologic/Lymphatic: No ecchymosis, no lymphadenopathy. Course Vital Signs Vital signs: Vital Signs Temperature 37.1 C 01/31/25 12:39 Pulse 112 H 01/31/25 12:39 Respiratory Rate 16 01/31/25 12:39 Blood Pressure 148/80 H 01/31/25 12:39 Pulse Oximetry 98 01/31/25 12:39 Temperature 37.1 C 01/31/25 12:39 Temperature Source Oral 01/31/25 12:39 Pulse 112 H 01/31/25 12:39 Respiratory Rate 16 01/31/25 12:39 Blood Pressure 148/80 H 01/31/25 12:39 Blood Pressure Position Supine 01/31/25 12:39 Pulse Oximetry 98 01/31/25 12:39 Oxygen Delivery Method Room Air 01/31/25 12:39 Oxygen Flow Rate 0 01/31/25 12:39 Pain Level 3 01/31/25 12:39 Comment her pain level is a 3 when she does not move but when she moves around up to 06/09 or 07/0901/31/25 12:39 Medical Decision Making 79-year-old female presents to the ER with chronic left shoulder pain also radiation up into her neck. She was seen approximately a week ago by me in the emergency department had x-rays which showed possible impingement syndrome and rotator cuff etiology. She reports known new falls or injuries. She just reports some continued pain with little relief from the pain relief modalities at home. She has been using IcyHot, oxycodone 5 mg which was prescribed by her primary care provider once a day, she last got this filled on the , and lidocaine patches. She denies any chest pain shortness of breath or any other associated symptoms. X-ray of C-spine ordered, Flexeril 10 mg, patient does have a upcoming appointment with orthopedics in approximately 10 days. Patient given an oxycodone tablet in the department. Prescription for 6 tablets given. Also given diclofenac gel, and Flexeril. Patient remained hemodynamically stable alert and oriented vital signs improved at discharge. This text was generated using [employer] system, please disregard any oddities of phrase or misspellings. Medical Records Medical records reviewed: Yes I reviewed the patient's medical records. Imaging Data Radiologic Study: Imaging: X-Ray Radiologist's impression: TECHNIQUE: Imaging protocol: Radiologic exam of the cervical spine. Views: 2 or 3 views. COMPARISON: CR XR SHOULDER LT COMPLETE 2+V 01/22/2025 10:07 AM FINDINGS: Bones/joints: Alignment is normal. Degenerative disc disease is seen most prominently C5-C6, C6- C7. Diffuse facet arthropathy. No fracture or bony destructive lesion. Soft tissues: Unremarkable. IMPRESSION: No acute findings. Thank you for allowing us to participate in the care of your patient. Dictated and Authenticated by: Florentin Kirby MD Quality:SDOH Health Related Social Needs: No Data to Display PFSH All Active Problems (Updated 01/31/25 @ 14:18 by Yulia Quintero NP) Degenerative cervical disc (Acute) Osteoarthritis of cervical spine determined by x-ray (Acute) Chronic left shoulder pain (Acute) Essential hypertension (Chronic) GERD (gastroesophageal reflux disease) (Chronic 12/05/15) Generalized weakness (Acute) Falls frequently (Acute) Insomnia (Acute) Referred otalgia of left ear (Acute) MONIQUE treated with BiPAP (Acute) Overactive bladder (Acute 01/12/15) Xerostomia (Acute) Pedal edema (Acute) Sore throat (Acute) Swallowing pain or burning (Acute) Type 2 diabetes mellitus without complication, without long-term current use of insulin (Acute 07/08/17) Medical History Ear pain, left Urge incontinence Benign paroxysmal positional vertigo (03/04/18) Crohn's disease of small intestine without complication (06/15/16) 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 LOPEZ; RIGHT EYE Bladder Surgery CANCER TUMOR 1999 ADHESIONS (~1970) Family History Mother , 77 Heart disease ME Hyperlipidemia Cancer Depression Father , 60 Heart disease [place] Hyperlipidemia Alcohol use disorder Grandmother Heart disease [place] Brother , 29 Depression Social History Smoking/Tobacco Use Status: Former Tobacco Use tobacco type: cigarettes Quit Date: 06/30/81 Tobacco: How many years used: 20 Second Hand Exposure: Yes Smoking risk assessment performed?: Yes Alcohol Intake: former Drug use: Never Substance use type: does not use Caregiver/Support person: No Household members: spouse Housing: house Communication Needs: Hard of Hearing and Corrective Lenses Do you need help understanding health information?: Rarely Pets and animals: Yes Pets and animals: dog(s) Current gender identity: female What is your relationship status?: How often do you talk on the phone with friends or family?: never How often do you get together with friends or relatives?: decline to answer How often do you attend jain or pentecostal services?: 1-3 times per year Do you belong to any clubs or organized social groups?: no Panel score (0-1 are the most socially isolated patients): 1 What type of physical activity do you participate in: none Frequency: does not exercise Marlene/Presybeterian: None Special marlene needs: No Seatbelt use: never Helmet use: No Drive intox or ride w/intox non emergency services ambulance driver: No Do you feel safe at home: Yes Do you feel safe in your relationship?: Yes
[2025-01-31] MEDS: Cyclobenzaprine 10 MG TAB PO (13:22)
--- NOTE | 2025-01-31 14:12 | DI.VRAD_ITS ---
PROCEDURE INFORMATION: Exam: XR Cervical Spine Exam date and time: 01/31/2025 1:31 PM Age: 79 years old Clinical indication: Neck pain TECHNIQUE: Imaging protocol: Radiologic exam of the cervical spine. Views: 2 or 3 views. COMPARISON: CR XR SHOULDER LT COMPLETE 2+V 01/22/2025 10:07 AM FINDINGS: Bones/joints: Alignment is normal. Degenerative disc disease is seen most prominently C5-C6, C6-C7. Diffuse facet arthropathy. No fracture or bony destructive lesion. Soft tissues: Unremarkable. IMPRESSION: No acute findings. Dictated and Authenticated by: Florentin Kirby MD. Orderin Leon Bender MD
[2025-01-31 14:16] VITALS: BP 172/65; PULSE 71; RESP 16; O2SAT 99
[2025-01-31 14:57] VITALS: BP 150/55; PULSE 69; RESP 14; TEMP 36.9; O2SAT 98
[2025-01-31] MEDS: oxyCODONE 5 MG TAB PO (14:57)
--- NOTE | 2025-02-01 09:44 | NUR.NOTE ---
Access chart to get the PCP to fax the prior authorization for cyclobenzaprine [facility] 10mg tabs. Nursing Note:
== END 2025-01-31 14:57 | disposition home or self-care (01) ==
PROVIDERS: Emergency Provider Registered Nurse Emergency; PCP Nurse Practitioner Family
DX: M25.512 Pain in left shoulder (principal); G89.29 Other chronic pain; M50.323 Other cervical disc degeneration at C6-C7 level; M47.812 Spondylosis without myelopathy or radiculopathy, cervical region; I10 Essential (primary) hypertension; E78.5 Hyperlipidemia, unspecified; E11.9 Type 2 diabetes mellitus without complications; Z79.84 Long term (current) use of oral hypoglycemic drugs; Z79.85 Long-term (current) use of injectable non-insulin antidiabetic drugs
CPT/HCPCS: 99283; 72040

== ENCOUNTER 2025-02-03 00:35 | Outpatient (CLI) | payer MEDICARE, SELFPAY ==
--- NOTE | 2025-02-03 | DI.US_ITS ---
Exam(s) US SOFT TISSUE HEAD OR NECK EXAM: US SOFT TISSUE HEAD OR NECK CLINICAL HISTORY: SWELLING MASS LUMP NECK R22.1. TECHNIQUE: Ultrasound was performed using standard protocol. COMPARISON: US LEFT EXTREMITY ULTRASOUND from 12/09/2012 FINDINGS: Sonographic assessment utilizing grayscale and color Doppler imaging was performed and targeted to th e area of clinical concern. The area of palpable abnormality in the right neck corresponds to a normal appearance lymph node allison uring 6 x 3 by 4 millimeters. Additional lymph node measuring 9 x 3 x 6 millimeters also noted in th e area which also appears normal. There is no evidence of suspicious mass or soft tissue edema. IMPRESSION: Palpable abnormality appears to correspond to a normal appearing small lymph node. DATA REPOSITORY:
== END 2025-02-03 00:55 ==
LOC: DI 00:35
PROVIDERS: PCP Nurse Practitioner Family; Visit Provider Nurse Practitioner Family
DX: R22.1 Localized swelling, mass and lump, neck (principal)
CPT/HCPCS: 76536

== ENCOUNTER → 2025-02-10 09:44 | Outpatient (BNVA) | payer MEDICARE, SELFPAY | PROVIDERS: PCP Nurse Practitioner Family; Referring Provider Nurse Practitioner Family; Visit Provider Student in an Organized Health Care Education/Training Program | DX: M19.012 Primary osteoarthritis, left shoulder (principal); M75.102 Unspecified rotator cuff tear or rupture of left shoulder, not specified as traumatic | CPT/HCPCS: 20610; J1010 ==

== ENCOUNTER 2025-02-19 00:48 | Outpatient (CLI) | payer MEDICARE, SELFPAY ==
--- NOTE | 2025-02-19 | DI.CT_ITS ---
Exam(s) CT CHEST WO EXAM: CT CHEST WO CLINICAL HISTORY: Solitary nodule of lung, R91.1 TECHNIQUE: Imaging Protocol: Axial computed tomography images with coronal and sagittal reformatted images were created and reviewed. Computer aided detection (CAD) was utilized. CONTRAST MATERIAL: Intravenous: Omnipaque 350 Contrast volume:structured data ml. COMPARISON: CT CT ABDOMEN PELVIS W from 04/12/2024 FINDINGS: Pulmonary parenchyma: No consolidation. No dominant measurable mass. Stable nodules at the periphery of the left lower lobe. Stable nodule at the inferior peripheral right lower lobe. There is a nodu le also seen posteriorly in the right lower lobe which is above the level of the previous abdominal s can. It is circumscribed and measures 5 millimeters. Tracheobronchial tree: No bronchiectasis or mucous plugging. Mediastinum and Kendra: No dominant adenopathy or fluid collection. Pleura: No effusion. No pneumothorax. Heart: The heart is not dilated. Moderate to severe coronary artery calcifications are seen. Aorta: Thoracic aorta non-dilated. Mild atherosclerotic changes. Pulmonary arteries: No gross evidence of emboli. Upper abdomen: No acute findings. Bones: Degenerative changes in the spine, with flowing osteophytes.. Soft tissues: Unremarkable. IMPRESSION: Stable nodules at the bilateral lung bases. An additional nodule is noted measuring 5 millimeters on today's exam which was above the field of view included in the previous study. No follow-up is marsha mmended for low risk patient. Single solid noncalcified nodules. ???Solid nodules smaller than 6 mm (those 5 mm or smaller) do not require routine follow-up in patients at low risk (grade 1C; strong recommendation, low- or very-low- quality evidence). (Jamie et al., 2017) For multiple solid noncalcified nodules smaller than 6 mm in diameter, no routine follow-up is recomm ended (grade 2B; weak recommendation, moderate-quality evidence). (Jamie et al., 2017) RADIATION DOSE DELIVERED: 229.01mGy.cm Total DLP DATA REPOSITORY: All CT scans at this facility are submitted to the National Radiology Data Registry (NRDR) Dose Index Registry (DIR) with the [employer] (ACR). RADIATION OPTIMIZATION: All CT scans at this facility use at least one of these dose optimization te chniques: automated exposure control; mA and/or kV adjustment per patient size (includes targeted exa ms where dose is matched to clinical indication); or iterative reconstruction.
== END 2025-02-19 01:08 ==
LOC: DI 00:48
PROVIDERS: PCP Nurse Practitioner Family; Visit Provider Nurse Practitioner Family
DX: R91.8 Other nonspecific abnormal finding of lung field (principal)
CPT/HCPCS: 71250

== ENCOUNTER → 2025-07-07 09:37 | Outpatient (BNVA) | payer MEDICARE, SELFPAY | PROVIDERS: PCP Nurse Practitioner Family; Referring Provider Nurse Practitioner Family; Visit Provider Student in an Organized Health Care Education/Training Program | DX: M19.012 Primary osteoarthritis, left shoulder (principal) | CPT/HCPCS: 20610; J1010 ==